=== PATIENT | female | born 1970 | race Caucasian/White ===

== ENCOUNTER 2021-06-06 09:42 | Emergency (ER) | payer BC, OTHER ==
[2021-06-06] MEDS ORDERED: solu-MEDROL 125 MG, Sterile H2O 10 ml 2 ML IV ONE ×2 (09:54)
[2021-06-06] MEDS ORDERED: HYDROCODONE-ACETAMIN 2.5-108/5 ML SOLUTION PO STA (09:56)
--- NOTE | 2021-06-06 10:02 | ERPHSYRPT ---
- History of Present Illness Time Seen by Provider: 06/06/21 09:50 Source: patient Exam Limitations: no limitations Physician History: This is a 50-year-old white female who has a history of asthma and continues to smoke daily and presents with cough and shortness of breath and "lungs hurting her". Her symptoms began 2 days ago. Symptoms have not improved. Patient has not received a COVID-19 vaccination. She has not been exposed to anyone with similar symptoms or with known viral illness. Patient states that she has been having fevers at home. Timing/Duration: day(s) (2) Severity of Dyspnea-Max: moderate Severity of Dyspnea-Current: moderate Possible Cause: occasional episodes Modifying Factors: Improves With: activity, coughing Associated Symptoms: cough, chest pain/discomfort, painful breathing Allergies/Adverse Reactions: Penicillins Allergy (Verified 04/14/12 20:53) Home Medications: Albuterol 2.5 mg/3 ml Neb [Proventil 2.5 mg/3 ml Neb] 2.5 ml NEB DAILY 06/06/21 [History] Albuterol Sulfate [Ventolin Hfa] 18 gm NEB DAILY 06/06/21 [History] Buspirone HCl [Buspar] 5 mg PO DAILY 06/06/21 [History] Hx Tetanus, Diphtheria Vaccination/Date Given: Yes Hx Influenza Vaccination/Date Given: No Hx Pneumococcal Vaccination/Date Given: No Travel Risk - International Travel Have you traveled outside of the country in past 3 weeks: No - Coronavirus Screening Are you exhibiting any of the following symptoms?: No Symptoms: Fever, Cough: New Onset, Shortness of Breath Close contact with a COVID-19 positive Pt in past 14-21 Days: No - Vaccine Status Have you recieved a Covid-19 vaccination: No - Review of Systems Constitutional: Fever Eyes: No Symptoms Ears, Nose, & Throat: No Symptoms Respiratory: Cough, Dyspnea Cardiac: No Symptoms Abdominal/Gastrointestinal: No Symptoms Genitourinary Symptoms: No Symptoms Musculoskeletal: No Symptoms Skin: No Symptoms Neurological: No Symptoms Psychological: Anxiety Endocrine: No Symptoms Hematologic/Lymphatic: No Symptoms Immunological/Allergic: No Symptoms All Other Systems: Reviewed and Negative - Past Medical History Pertinent Past Medical History: No Neurological History: No Pertinent History ENT History: No Pertinent History Cardiac History: No Pertinent History Respiratory History: Asthma Endocrine Medical History: No Pertinent History Musculoskeletal History: No Pertinent History GI Medical History: No Pertinent History History: No Pertinent History Psycho-Social History: No Pertinent History - Past Surgical History Past Surgical History: Yes Gastrointestinal: Appendectomy, Cholecystectomy Female Surgical History: Section Other Surgical History: EAR SURGERY - Social History Smoking Status: Current every day smoker How long have you smoked: 20 YEARS Exposure to second hand smoke: Yes Drug Use: none Patient Lives Alone: No Significant Family History: ASTHMA-DAD - Female History Hx Now: No - Nursing Vital Signs Nursing Vital Signs: Initial Vital Signs Temperature 97.9 F 06/06/21 09:45 Pulse Rate 75 06/06/21 09:45 Respiratory Rate 24 06/06/21 09:45 Blood Pressure 171/102 06/06/21 09:45 O2 Sat by Pulse Oximetry 100 06/06/21 09:45 Pain Scale Pain Intensity 6 - Physical Exam General Appearance: mild distress (Appears to be related more to anxiety.), alert, anxiety, other (Patient has the ability to speak multiple long sentences.) Eye Exam: PERRL/EOMI, eyes nml inspection Ears, Nose, Throat Exam: hearing grossly normal Neck Exam: normal inspection, non-tender, supple, full range of motion Respiratory Exam: normal breath sounds, lungs clear, airway intact, No chest tenderness, No respiratory distress, No rhonchi, No wheezing, No stridor Cardiovascular/Chest Exam: normal heart sounds, regular rate/rhythm Abdominal/Gastrointestinal Exam: soft, normal bowel sounds, No tenderness Rectal Exam: not done Extremity Exam: non-tender, normal range of motion, normal inspection, normal capillary refill, no calf tenderness, no pedal edema, pelvis stable, No calf tenderness Neurologic Exam: alert, oriented x 3, cooperative, 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 as tested, normal mood/affect, nml cerebellar function, nml station & gait, sensation nml Skin Exam: normal color, warm, dry Lymphatic Exam: No adenopathy SpO2 Interpretation: normal O2 Delivery: Room Air - Course Nursing assessment & vital signs reviewed: Yes EKG Interpreted by Me: RATE (54), Sinus Rhythm, NORMAL AXIS, NORMAL INTERVALS, NORMAL QRS, NORMAL ST-T, Other (No acute ischemic changes on today's EKG.) Ordered Tests: Active Orders 24 hr Category Date Time Status 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 Care 06/06/21 09:55 Active EKG-ER Only STAT Care 06/06/21 09:56 Active IV Insertion STAT Care 06/06/21 09:54 Active Pulse Oximetry (ED) STAT Care 06/06/21 09:54 Active CHEST 1 VIEW (PORTABLE) Stat Exams 06/06/21 09:54 Completed BLOOD CULTURE Stat Lab 06/06/21 10:20 Received CBC W DIFF Stat Lab 06/06/21 10:10 Completed CMP Stat Lab 06/06/21 10:10 Completed D-DIMER QUANTITATIVE Stat Lab 06/06/21 10:10 Completed Lactic Acid Stat Lab 06/06/21 09:54 Completed NT PRO BNP Stat Lab 06/06/21 10:10 Completed PROTIME WITH INR Stat Lab 06/06/21 10:10 Completed TROPONIN Q3H Lab 06/06/21 10:10 Completed TROPONIN Q3H Lab 06/06/21 13:00 Ordered TROPONIN Q3H Lab 06/06/21 16:00 Ordered TROPONIN Q3H Lab 06/06/21 19:00 Ordered TROPONIN Q3H Lab 06/06/21 22:00 Ordered Medication Summary Discontinued Medications Generic Name Dose Route Start Last Admin Trade Name Freq PRN Reason Stop Dose Admin Hydrocodone Bitart/Acetaminophen 10 ml 06/06/21 09:56 06/06/21 10:34 Hydrocodone-Acetamin 2.5-108/5 Ml Solution PO 06/06/21 09:57 10 ml STAT STA Administration Hydrocodone Bitart/Acetaminophen Confirm 06/06/21 10:33 Hydrocodone-Acetamin 2.5-108/5 Ml Solution Administered 06/06/21 10:34 Dose 10 ml .ROUTE .STK-MED ONE Methylprednisolone Sodium 0 mg 06/06/21 09:54 06/06/21 10:35 Succinate 125 mg/ Sterile IV 06/06/21 09:55 125 mg Water 2 ml STAT ONE Administration Methylprednisolone Sodium Succinate Confirm 06/06/21 10:34 Solu-Medrol Administered 06/06/21 10:35 Dose 125 mg .ROUTE .STK-MED ONE Sterile Water Confirm 06/06/21 10:34 Sterile H2o 10 Ml Administered 06/06/21 10:35 Dose 10 ml IJ .STK-MED ONE Lab/Rad Data: Laboratory Result Diagrams 06/06/21 10:10 06/06/21 10:10 Laboratory Results 06/06/21 06/06/21 06/06/21 Range/Units 10:10 10:10 10:10 WBC (4.0-10.5) K/mm3 RBC (4.1-5.4) M/mm3 Hgb (12.0-16.0) gm/dl Hct (35-47) % MCV (78-100) fl MCH (26-32) pg MCHC (32-36) g/dl RDW (11.5-14.0) % Plt Count (150-450) K/mm3 MPV (7.5-11.0) fl Gran % (36.0-66.0) % Eos # (Auto) (0-0.5) Absolute Lymphs (auto) (1.0-4.6) Absolute Monos (auto) (0.0-1.3) Lymphocytes % (24.0-44.0) % Monocytes % (0.0-12.0) % Eosinophils % (0.00-5.0) % Basophils % (0.0-0.4) % Absolute Granulocytes (1.4-6.9) Basophils # (0-0.4) PT 10.8 (9.4-12.5) SECONDS INR 0.92 (0.8-3.0) D-Dimer < 215 L (215-500) ng/mL Sodium 141 (137-145) mmol/L Potassium 3.9 (3.5-5.1) mmol/L Chloride 103 (98-107) mmol/L Carbon Dioxide 27 (22-30) mmol/L Anion Gap 15.5 H (5-15) MEQ/L BUN 5 L (7-17) mg/dL Creatinine 0.64 (0.52-1.04) mg/dL Estimated GFR > 60.0 ML/MIN Glucose 89 (74-106) mg/dL Lactic Acid (0.4-2.0) Calcium 9.6 (8.4-10.2) mg/dL Total Bilirubin < 0.10 L (0.2-1.3) mg/dL AST 21 (14-36) U/L ALT 13 (0-35) U/L Alkaline Phosphatase 78 (38-126) U/L Troponin I < 0.012 (0.000-0.034) ng/mL NT-Pro-B Natriuret Pep 235 (0-450) pg/mL Serum Total Protein 7.4 (6.3-8.2) g/dL Albumin 4.3 (3.5-5.0) g/dL 06/06/21 06/06/21 Range/Units 10:10 09:54 WBC 6.2 (4.0-10.5) K/mm3 RBC 4.06 L (4.1-5.4) M/mm3 Hgb 8.4 L (12.0-16.0) gm/dl Hct 29.3 L (35-47) % MCV 72.2 L (78-100) fl MCH 20.7 L (26-32) pg MCHC 28.7 L (32-36) g/dl RDW 23.4 H (11.5-14.0) % Plt Count 233 (150-450) K/mm3 MPV 11.0 (7.5-11.0) fl Gran % 54.2 (36.0-66.0) % Eos # (Auto) 0.24 (0-0.5) Absolute Lymphs (auto) 1.85 (1.0-4.6) Absolute Monos (auto) 0.74 (0.0-1.3) Lymphocytes % 29.6 (24.0-44.0) % Monocytes % 11.9 (0.0-12.0) % Eosinophils % 3.8 (0.00-5.0) % Basophils % 0.5 (0.0-0.4) % Absolute Granulocytes 3.38 (1.4-6.9) Basophils # 0.03 (0-0.4) PT (9.4-12.5) SECONDS INR (0.8-3.0) D-Dimer (215-500) ng/mL Sodium (137-145) mmol/L Potassium (3.5-5.1) mmol/L Chloride (98-107) mmol/L Carbon Dioxide (22-30) mmol/L Anion Gap (5-15) MEQ/L BUN (7-17) mg/dL Creatinine (0.52-1.04) mg/dL Estimated GFR ML/MIN Glucose (74-106) mg/dL Lactic Acid 1.4 (0.4-2.0) Calcium (8.4-10.2) mg/dL Total Bilirubin (0.2-1.3) mg/dL AST (14-36) U/L ALT (0-35) U/L Alkaline Phosphatase (38-126) U/L Troponin I (0.000-0.034) ng/mL NT-Pro-B Natriuret Pep (0-450) pg/mL Serum Total Protein (6.3-8.2) g/dL Albumin (3.5-5.0) g/dL - Progress Progress: improved, re-examined Air Movement: good Progress Note: 06/06/21 10:46 Chest x-ray reveals no acute cardiopulmonary process 06/06/21 11:26 Medical decision making: This patient's symptoms have improved. Patient was found to be anemic with a hemoglobin 8.4. Her vital signs are stable. There is no active, emergent bleeding at this time. Patient did state that she has been having intermittent vaginal bleeding for several months. She had put herself on an iron tablet. She has an appointment scheduled with her primary care physician, Dr. Randolph on 06/13/2021. I advised her of her hemoglobin level and the need to have the discussion regarding the vaginal bleeding and anemia evaluation and management by Dr. Randolph. Blood Culture(s) Obtained: No Antibiotics given: No - Departure Departure Disposition: Home Clinical Impression: Shortness of breath, Anemia Condition: Stable Critical Care Time: No Referrals: SALMA BRYANT [Primary Care Provider] - Additional Instructions: Eat green leafy vegetables, continue taking your iron as discussed. Follow-up with Dr. Randolph at your next appointment and discuss your intermittent vaginal bleeding and anemia issues.
--- NOTE | 2021-06-06 10:15 | XRAY ---
Indication: Short of breath and nonproductive cough. Comparison: June 23, 2012. Portable chest again demonstrates normal heart, lungs, and bony thorax.
[2021-06-06 10:32] LABS: Absolute Neutrophil Ct (ANC) 3.38 (1.4-6.9); BASOPHIL % 0.5 % (0.0-0.4); Basophil (Absolute #) 0.03 (0-0.4); Eosinophil % 3.8 % (0.00-5.0); Eosinophil (Absolute #) 0.24 (0-0.5); Hematocrit 29.3 % (35-47); Hemoglobin 8.4 gm/dl (12.0-16.0); Lymphocyte (Absolute #) 1.85 (1.0-4.6); Lymphocytes % 29.6 % (24.0-44.0); Mean Cell Volume 72.2 fl (78-100); Mean Corpuscular Hemoglobin 20.7 pg (26-32); Mean Corpuscular Hgb Concent. 28.7 g/dl (32-36); Monocyte (Absolute #) 0.74 (0.0-1.3); Monocytes % 11.9 % (0.0-12.0); Neutrophil % 54.2 % (36.0-66.0); Platelet Count 233 K/mm3 (150-450); Red Blood Count 4.06 M/mm3 (4.1-5.4); Red Cell Distribution Width 23.4 % (11.5-14.0); White Blood Count 6.2 K/mm3 (4.0-10.5)
[2021-06-06] MEDS ORDERED: HYDROCODONE-ACETAMIN 2.5-108/5 ML SOLUTION ONE (10:33)
[2021-06-06] MEDS ORDERED: Sterile H2O 10 ml IJ ONE (10:34)
[2021-06-06] MEDS ORDERED: solu-MEDROL ONE (10:34)
[2021-06-06 10:38] LABS: INR 0.92 (0.8-3.0); PROTIME 10.8 SECONDS (9.4-12.5)
[2021-06-06 10:42] LABS: D-DIMER QUANTITATIVE < 215 ng/mL (215-500)
[2021-06-06 10:53] LABS: ALBUMIN 4.3 g/dL (3.5-5.0); ALKALINE PHOSPHATASE 78 U/L (38-126); ANION GAP 15.5 MEQ/L (5-15); BILIRUBIN,TOTAL < 0.10 mg/dL (0.2-1.3); BLOOD UREA NITROGEN 5 mg/dL (7-17); CHLORIDE 103 mmol/L (98-107); Calcium 9.6 mg/dL (8.4-10.2); Carbon Dioxide 27 mmol/L (22-30); Creatinine 1 0.64 mg/dL (0.52-1.04); EST GLOMERULAR FILTRATION RATE > 60.0 ML/MIN; Glucose 89 mg/dL (74-106); NT PRO BNP 235 pg/mL (0-450); Potassium 3.9 mmol/L (3.5-5.1); SGOT/AST 21 U/L (14-36); SGPT/ALT 13 U/L (0-35); SODIUM 141 mmol/L (137-145); Total Protein 7.4 g/dL (6.3-8.2)
[2021-06-06 11:25] VITALS: BP 162/84; PULSE 64; O2SAT 100
[2021-06-06 14:12] LABS: Slide Review 1 YES
== END 2021-06-06 11:45 | disposition home or self-care (01) ==
LOC: ED 09:42
DX: R06.02 Shortness of breath (principal); D64.9 Anemia, unspecified
CPT/HCPCS: 36415; 71045; 80053; 83605; 83880; 84484; 85025; 85379; 85610; 86617; 86618; 87040; 93005; 93041; 94760; 96374; 99284; J2930; A9270-GY

== ENCOUNTER 2021-06-19 11:58 | Emergency (ER) | payer OTHER ==
[2021-06-19 13:03] LABS: Absolute Neutrophil Ct (ANC) 4.24 (1.4-6.9); BASOPHIL % 0.4 % (0.0-0.4); Basophil (Absolute #) 0.03 (0-0.4); Eosinophil % 1.9 % (0.00-5.0); Eosinophil (Absolute #) 0.13 (0-0.5); Hematocrit 35.9 % (35-47); Hemoglobin 10.5 gm/dl (12.0-16.0); Lymphocytes % 28.7 % (24.0-44.0); Mean Cell Volume 73.6 fl (78-100); Mean Corpuscular Hemoglobin 21.5 pg (26-32); Mean Corpuscular Hgb Concent. 29.2 g/dl (32-36); Mean Platelet Volume 10.9 fl (7.5-11.0); Monocyte (Absolute #) 0.57 (0.0-1.3); Monocytes % 8.2 % (0.0-12.0); Neutrophil % 60.8 % (36.0-66.0); Platelet Count 244 K/mm3 (150-450); Red Blood Count 4.88 M/mm3 (4.1-5.4)
[2021-06-19 13:07] LABS: ALBUMIN 4.6 g/dL (3.5-5.0); ALKALINE PHOSPHATASE 100 U/L (38-126); ANION GAP 14.8 MEQ/L (5-15); BILIRUBIN,TOTAL < 0.10 mg/dL (0.2-1.3); BLOOD UREA NITROGEN 10 mg/dL (7-17); CHLORIDE 102 mmol/L (98-107); Calcium 9.8 mg/dL (8.4-10.2); Carbon Dioxide 23 mmol/L (22-30); Creatinine 1 0.63 mg/dL (0.52-1.04); EST GLOMERULAR FILTRATION RATE > 60.0 ML/MIN; Glucose 99 mg/dL (74-106); Potassium 4.2 mmol/L (3.5-5.1); SGOT/AST 34 U/L (14-36); SGPT/ALT 20 U/L (0-35); SODIUM 136 mmol/L (137-145); Total Protein 7.9 g/dL (6.3-8.2)
[2021-06-19 13:39] VITALS: BP 129/75; PULSE 71
[2021-06-19] MEDS: Zofran 4 MG/2 ML VIAL IV ONE (13:39)
[2021-06-19] MEDS ORDERED: ZOFRAN ODT 4 MG ONE (13:39)
[2021-06-19 13:44] VITALS: O2SAT 97
--- NOTE | 2021-06-19 13:44 | ERPHSYRPT ---
- History of Present Illness Time Seen by Provider: 06/19/21 12:12 Source: patient Exam Limitations: no limitations Patient Subjective Stated Complaint: Pt states that she has "turkey ticks" all over her body and she has had them in her house for the past couple of months but over the past couple of weeks she has gotten really weak and nauseaous and believes that it is due to them Triage Nursing Assessment: Pt brought to the ER by her , hypertensive, rates overall pain as 7/10, no edema, decreased appetite, decreased sleep, scattered bites on body, skin n/w/d, doesn't appear to be in any distress Physician History: Patient is a 50-year-old female presents to our ED with complaints of pruritus. The pruritus has been ongoing for approximately 2 months. Patient has been evaluated and worked up by her family physician for the same. Patient is here because she feels her symptoms are worsening. Patient attributes her symptoms to turkey ticks. Patient states she has turkey ticks all over her body and her house. Patient lives with her however he is asymptomatic. Patient states she feels mildly nauseous. Patient denies pain. No vomiting. No diarrhea. NO CP or SOB. There are a few scant isolated lesions on her skin that she has been scratching. Patient believes these are a result of turkey ticks. Symptoms are mild to moderate in intensity. No specific worsening improving factors. Patient otherwise feels well. No hives. No difficulty breathing no shortness of breath. No abdominal pain or cramping. Patient's only allergies are morphine and penicillin which she has not been exposed to per patient. Timing/Duration: today Severity: moderate Modifying Factors: Improves With: nothing Associated Symptoms: denies symptoms Allergies/Adverse Reactions: morphine Allergy (Verified 06/19/21 12:22) Penicillins Allergy (Verified 06/19/21 12:21) Home Medications: Albuterol 2.5 mg/3 ml Neb [Proventil 2.5 mg/3 ml Neb] 2.5 ml NEB DAILY 06/06/21 [History] Albuterol Sulfate [Ventolin Hfa] 18 gm NEB DAILY 06/06/21 [History] Buspirone HCl [Buspar] 10 mg PO DAILY 06/06/21 [History] Cyclobenzaprine HCl 10 mg [Cyclobenzaprine 10 MG] 10 mg PO TID 06/19/21 [History] Ferrous Sulfate 325 mg [Feosol 325 mg] 325 mg PO DAILY 06/19/21 [History] Hydroxyzine HCl 25 mg [Atarax 25 mg] 25 mg PO TID 06/19/21 [History] Hx Tetanus, Diphtheria Vaccination/Date Given: Yes Hx Influenza Vaccination/Date Given: No Hx Pneumococcal Vaccination/Date Given: No Travel Risk - International Travel Have you traveled outside of the country in past 3 weeks: No - Coronavirus Screening Are you exhibiting any of the following symptoms?: No Close contact with a COVID-19 positive Pt in past 14-21 Days: No - Vaccine Status Have you recieved a Covid-19 vaccination: No - Review of Systems Constitutional: No Symptoms, No Fever, No Chills Eyes: No Symptoms Ears, Nose, & Throat: No Symptoms Respiratory: No Symptoms, No Cough, No Dyspnea Cardiac: No Symptoms, No Chest Pain, No Edema, No Syncope Abdominal/Gastrointestinal: No Symptoms, No Abdominal Pain, No Nausea, No Vomiting, No Diarrhea Genitourinary Symptoms: No Symptoms, No Dysuria Musculoskeletal: No Symptoms, No Back Pain, No Neck Pain Skin: No Symptoms, No Rash Neurological: No Symptoms, No Dizziness, No Focal Weakness, No Sensory Changes Psychological: No Symptoms Endocrine: No Symptoms Hematologic/Lymphatic: No Symptoms Immunological/Allergic: No Symptoms All Other Systems: Reviewed and Negative - Past Medical History Pertinent Past Medical History: Yes Neurological History: No Pertinent History ENT History: No Pertinent History Cardiac History: No Pertinent History Respiratory History: Asthma Endocrine Medical History: No Pertinent History Musculoskeletal History: No Pertinent History, Rheumatoid Arthritis GI Medical History: No Pertinent History History: No Pertinent History Psycho-Social History: Anxiety, Depression, Panic Disorder - Past Surgical History Past Surgical History: Yes Gastrointestinal: Appendectomy, Cholecystectomy Female Surgical History: Section Other Surgical History: EAR SURGERY - Social History Smoking Status: Current every day smoker How long have you smoked: 20 YEARS Exposure to second hand smoke: Yes Drug Use: marijuana Patient Lives Alone: No Significant Family History: ASTHMA-DAD - Female History Hx Now: No - Nursing Vital Signs Nursing Vital Signs: Initial Vital Signs Temperature 97.3 F 06/19/21 12:12 Pulse Rate 76 06/19/21 12:12 Blood Pressure 143/73 06/19/21 12:12 O2 Sat by Pulse Oximetry 97 06/19/21 12:12 Pain Scale Pain Intensity 7 - Physical Exam General Appearance: no apparent distress, alert Eye Exam: PERRL/EOMI, eyes nml inspection Ears, Nose, Throat Exam: normal ENT inspection, TMs normal, pharynx normal, moist mucous membranes Neck Exam: normal inspection, non-tender, supple, full range of motion Respiratory Exam: normal breath sounds, lungs clear, No respiratory distress Cardiovascular Exam: regular rate/rhythm, normal heart sounds, normal peripheral pulses Gastrointestinal/Abdomen Exam: soft, normal bowel sounds, No tenderness, No mass Back Exam: normal inspection, normal range of motion, No CVA tenderness, No vertebral tenderness Extremity Exam: normal inspection, normal range of motion, pelvis stable Neurologic Exam: alert, oriented x 3, cooperative, normal mood/affect, sensation nml, No motor deficits Skin Exam: normal color, warm, dry, other (Patient has a few scattered sparse lesions on her skin which itch. No superimposed cellulitis. Overlying soft tissue otherwise intact. No open or draining lesions. No lymphangitis.), No rash Lymphatic Exam: No adenopathy SpO2 Interpretation: normal SpO2: 97 O2 Delivery: Room Air - Course Nursing assessment & vital signs reviewed: Yes Ordered Tests: Active Orders 24 hr Category Date Time Status CBC W DIFF Stat Lab 06/19/21 12:30 Completed CMP Stat Lab 06/19/21 12:30 Completed Medication Summary Discontinued Medications Generic Name Dose Route Start Last Admin Trade Name Christopherq PRN Reason Stop Dose Admin Ondansetron HCl 4 mg 06/19/21 13:38 06/19/21 13:39 Zofran 4 Mg/2 Ml Vial IV 06/19/21 13:39 4 mg STAT ONE Administration Ondansetron HCl Confirm 06/19/21 13:39 Zofran Odt 4 Mg Administered 06/19/21 13:40 Dose 4 mg .ROUTE .[facility] ONE Lab/Rad Data: Laboratory Result Diagrams 06/19/21 12:30 06/19/21 12:30 Laboratory Results 06/19/21 06/19/21 Range/Units 12:30 12:30 WBC 7.0 (4.0-10.5) K/mm3 RBC 4.88 (4.1-5.4) M/mm3 Hgb 10.5 L (12.0-16.0) gm/dl Hct 35.9 (35-47) % MCV 73.6 L (78-100) fl MCH 21.5 L (26-32) pg MCHC 29.2 L (32-36) g/dl RDW 26.0 H (11.5-14.0) % Plt Count 244 (150-450) K/mm3 MPV 10.9 (7.5-11.0) fl Gran % 60.8 (36.0-66.0) % Eos # (Auto) 0.13 (0-0.5) Absolute Lymphs (auto) 2.00 (1.0-4.6) Absolute Monos (auto) 0.57 (0.0-1.3) Lymphocytes % 28.7 (24.0-44.0) % Monocytes % 8.2 (0.0-12.0) % Eosinophils % 1.9 (0.00-5.0) % Basophils % 0.4 (0.0-0.4) % Absolute Granulocytes 4.24 (1.4-6.9) Basophils # 0.03 (0-0.4) Sodium 136 L (137-145) mmol/L Potassium 4.2 (3.5-5.1) mmol/L Chloride 102 (98-107) mmol/L Carbon Dioxide 23 (22-30) mmol/L Anion Gap 14.8 (5-15) MEQ/L BUN 10 (7-17) mg/dL Creatinine 0.63 (0.52-1.04) mg/dL Estimated GFR > 60.0 ML/MIN Glucose 99 (74-106) mg/dL Calcium 9.8 (8.4-10.2) mg/dL Total Bilirubin < 0.10 L (0.2-1.3) mg/dL AST 34 (14-36) U/L ALT 20 (0-35) U/L Alkaline Phosphatase 100 (38-126) U/L Serum Total Protein 7.9 (6.3-8.2) g/dL Albumin 4.6 (3.5-5.0) g/dL - Progress Progress: improved Progress Note: Patient given Zofran for nausea. Patient reassessed. Nausea improved. Patient states that she is very frustrated because her symptoms have been ongoing for approximately 2 months. Patient states that her doctor has not been able to figure out the problem. I spoke to Dr. Briscoe covering Dr. Rouse. Dr. Briscoe advised considering follow-up with Dr. Rouse. I discussed work up results with patient. Patient became frustrated that no one knows what is wrong with her. She stated "everyone thinks I am making this up". I reassured patient that I believe her however we are just not able to find the exact problem at this point. Patient left the ER. Patient's was in the room during this time. Patient's states that patient had a traumatic brain injury approximately 1 year ago and that she tends to "get excited about things". apologized for hroades behavior. I advised to talk with and have her return to our ED. Patient absconded the ED prior to closure of this encounter. We did not discuss treatment or further recommendations for work-up. I advised that patient should follow-up with Dr. Rouse either or Saturday when he returns to his office for further recommendations and possible referral 06/19/21 14:11 06/19/21 14:30 Discussed with .: Danielle Will see patient in: office Counseled pt/family regarding: lab results, diagnosis, need for follow-up - Departure Departure Disposition: AMA Clinical Impression: pruritis Condition: Stable Critical Care Time: No Referrals: RIVAS ROUSE [Primary Care Provider] -
[2021-06-19 15:02] LABS: Slide Review 1 YES
== END 2021-06-19 14:10 | disposition left against medical advice (07) ==
LOC: ED 11:58
DX: L29.9 Pruritus, unspecified (principal); R11.0 Nausea; Z79.899 Other long term (current) drug therapy
CPT/HCPCS: 36415; 80053; 85025; 96374; 99283; J2405; Q0162

== ENCOUNTER 2022-05-31 10:50 | Emergency (ER) | payer OTHER ==
[2022-05-31] MEDS ORDERED: Sodium Chloride 0.9% 1000 ML 1,000 ML IV STA (11:24)
[2022-05-31] MEDS ORDERED: TORAdol 30 mg Injection IV ONE (11:24)
[2022-05-31] MEDS ORDERED: Zofran 4 MG/2 ML VIAL IV ONE (11:24)
[2022-05-31] MEDS ORDERED: TORAdol 30 mg Injection ONE (11:27)
[2022-05-31] MEDS ORDERED: Zofran 4 MG/2 ML VIAL ONE (11:27)
[2022-05-31] MEDS ORDERED: Sodium Chloride 0.9% 1000 ML 1,000 ML ONE (11:27)
--- NOTE | 2022-05-31 11:40 | ERPHSYRPT ---
- History of Present Illness Time Seen by Provider: 05/31/22 11:13 Source: patient Exam Limitations: no limitations Patient Subjective Stated Complaint: Pt states "I hurt all over, I have been coughing and I have been running a temp." Triage Nursing Assessment: Pt presented alert and oriented X 3, skin pwd. pt ambulates with an upright steady gait, able to speak in clear full sentences pt able to move while grunting. Physician History: 51 years old female presented to the ER with chief complaint of generalized body aches, fatigue tiredness, lack of energy since yesterday with associated fever and chills with a T-max of 101.5 yesterday. Also reports associated nausea and vomited once with occasional abdominal cramping. She also has nonproductive cough and because of repeated coughing having chest soreness. Unvaccinated for COVID-19 but denies any sick contact. Timing/Duration: yesterday, constant, gradual onset, worse Severity: moderate Modifying Factors: Worsens With: movement Associated Symptoms: nausea, vomiting, cough, chills, fever, headaches, loss of appetite, malaise, weakness, No abdominal pain, No shortness of breath Allergies/Adverse Reactions: bee venom protein (honey bee) Allergy (Severe, Verified 05/31/22 10:56) Swelling morphine Allergy (Verified 06/19/21 12:22) Penicillins Allergy (Verified 06/19/21 12:21) Home Medications: Albuterol 2.5 mg/3 ml Neb [Proventil 2.5 mg/3 ml Neb] 2.5 ml NEB DAILY 06/06/21 [History] Albuterol Sulfate [Ventolin Hfa] 18 gm NEB DAILY 06/06/21 [History] Buspirone HCl [Buspar] 10 mg PO DAILY 06/06/21 [History] Cyclobenzaprine HCl 10 mg [Cyclobenzaprine 10 MG] 10 mg PO TID 06/19/21 [History] Ferrous Sulfate 325 mg [Feosol 325 mg] 325 mg PO DAILY 06/19/21 [History] Hydroxyzine HCl 25 mg [Atarax 25 mg] 25 mg PO TID 06/19/21 [History] Dextroamphetamine/Amphetamine [Adderall 10 mg Tablet] 10 mg PO DAILY PRN 05/31/22 [History] Semaglutide [Ozempic] 0.25 mg IM WEEKLY 05/31/22 [History] Sertraline HCl [Zoloft] 100 mg PO DAILY 05/31/22 [History] Hx Tetanus, Diphtheria Vaccination/Date Given: Yes Hx Influenza Vaccination/Date Given: No Hx Pneumococcal Vaccination/Date Given: No Immunizations Up to Date: Yes Travel Risk - International Travel Have you traveled outside of the country in past 3 weeks: No - Coronavirus Screening Are you exhibiting any of the following symptoms?: Yes Symptoms: Fever, Cough: New Onset, Headaches/Body Aches/Fatigue - Vaccine Status Have you recieved a Covid-19 vaccination: No - Review of Systems Constitutional: Fever, Chills, Fatigue, Weakness Eyes: No Symptoms Ears, Nose, & Throat: No Symptoms Respiratory: Cough Cardiac: No Symptoms Abdominal/Gastrointestinal: Nausea, Vomiting Genitourinary Symptoms: No Symptoms Musculoskeletal: Myalgias Skin: No Symptoms Neurological: No Symptoms Psychological: No Symptoms Endocrine: No Symptoms Hematologic/Lymphatic: No Symptoms Immunological/Allergic: No Symptoms - Past Medical History Pertinent Past Medical History: Yes Neurological History: No Pertinent History ENT History: No Pertinent History Cardiac History: No Pertinent History Respiratory History: Asthma Endocrine Medical History: No Pertinent History Musculoskeletal History: No Pertinent History, Rheumatoid Arthritis GI Medical History: No Pertinent History History: No Pertinent History Psycho-Social History: Anxiety, Depression, Panic Disorder Other Medical History: graves - Past Surgical History Past Surgical History: Yes Gastrointestinal: Appendectomy, Cholecystectomy Female Surgical History: Section Other Surgical History: EAR SURGERY - Social History Smoking Status: Current every day smoker How long have you smoked: 20 YEARS Exposure to second hand smoke: Yes Drug Use: marijuana Patient Lives Alone: No Significant Family History: ASTHMA-DAD - Nursing Vital Signs Nursing Vital Signs: Initial Vital Signs Temperature 99.9 F 05/31/22 10:51 Pulse Rate 92 H 05/31/22 10:51 Respiratory Rate 24 05/31/22 10:51 Blood Pressure 123/85 05/31/22 10:51 O2 Sat by Pulse Oximetry 100 05/31/22 10:51 Pain Scale Pain Intensity 2 - Physical Exam General Appearance: no apparent distress, alert Eye Exam: PERRL/EOMI, eyes nml inspection Ears, Nose, Throat Exam: normal ENT inspection, TMs normal, pharynx normal, moist mucous membranes Neck Exam: normal inspection, non-tender, supple, full range of motion Respiratory Exam: normal breath sounds, lungs clear Cardiovascular Exam: regular rate/rhythm, normal heart sounds Gastrointestinal/Abdomen Exam: soft, normal bowel sounds, No tenderness Back Exam: normal inspection, normal range of motion Extremity Exam: normal inspection, normal range of motion Neurologic Exam: alert, oriented x 3, cooperative Skin Exam: normal color SpO2 Interpretation: normal SpO2: 99 O2 Delivery: Room Air Ordered Tests: Active Orders 24 hr Category Date Time Status IV Insertion STAT Care 05/31/22 11:24 Completed CHEST 1 VIEW (PORTABLE) Stat Exams 05/31/22 11:25 Completed BLOOD CULTURE Stat Lab 05/31/22 11:42 Received CBC W DIFF Stat Lab 05/31/22 12:00 Completed CMP Stat Lab 05/31/22 11:42 Completed LIPASE Stat Lab 05/31/22 11:42 Completed Lactic Acid Stat Lab 05/31/22 11:24 Completed MAG [MAGNESIUM] Stat Lab 05/31/22 11:42 Completed UA W/RFX CULTURE Stat Lab 05/31/22 11:31 Completed Medication Summary Discontinued Medications Generic Name Dose Route Start Last Admin Trade Name Freq PRN Reason Stop Dose Admin Sodium Chloride 1,000 mls @ 999 mls/hr 05/31/22 11:24 05/31/22 12:25 Sodium Chloride 0.9% 1000 Ml IV 05/31/22 12:24 Infused .Q1H1M STA Infusion Sodium Chloride Confirm 05/31/22 11:27 Sodium Chloride 0.9% 1000 Ml Administered 05/31/22 11:28 Dose 1,000 mls @ ud .ROUTE .STK-MED ONE Ketorolac Tromethamine 30 mg 05/31/22 11:24 05/31/22 11:28 Ketorolac Tromethamine 30 Mg/Ml Inj IV 05/31/22 11:25 30 mg STAT ONE Administration Ketorolac Tromethamine Confirm 05/31/22 11:27 Ketorolac Tromethamine 30 Mg/Ml Inj Administered 05/31/22 11:28 Dose 30 mg .ROUTE .STK-MED ONE Ondansetron HCl 4 mg 05/31/22 11:24 05/31/22 11:29 Ondansetron Hcl 4 Mg/2 Ml Vial IV 05/31/22 11:25 4 mg STAT ONE Administration Ondansetron HCl Confirm 05/31/22 11:27 Ondansetron Hcl 4 Mg/2 Ml Vial Administered 05/31/22 11:28 Dose 4 mg .ROUTE .STK-MED ONE Lab/Rad Data: Laboratory Result Diagrams 05/31/22 12:00 05/31/22 11:42 Laboratory Results 05/31/22 05/31/22 05/31/22 Range/Units 12:00 11:42 11:42 WBC 7.6 (4.0-10.5) x10^3/uL RBC 4.34 (4.1-5.4) x10^6/uL Hgb 13.4 (12.0-16.0) g/dL Hct 39.1 (35-47) % MCV 90.1 (78-100) fL MCH 30.9 (26-32) pg MCHC 34.3 (32-36) g/dL RDW 13.2 (11.5-14.0) % Plt Count 158 (150-450) x10^3/uL MPV 11.9 H (7.5-11.0) fL Gran % 88.3 H (36.0-66.0) % Immature Gran % (Auto) 0.3 (0.00-0.4) % Nucleat RBC Rel Count 0.0 (0.00-0.1) % Eos # (Auto) 0.04 (0-0.5) x10^3/uL Immature Gran # (Auto) 0.02 (0.00-0.03) x10^3u/L Absolute Lymphs (auto) 0.33 L (1.0-4.6) x10^3/uL Absolute Monos (auto) 0.46 (0.0-1.3) x10^3/uL Absolute Nucleated RBC 0.00 (0.00-0.01) x10^3u/L Lymphocytes % 4.4 L (24.0-44.0) % Monocytes % 6.1 (0.0-12.0) % Eosinophils % 0.5 (0.00-5.0) % Basophils % 0.4 (0.0-0.4) % Absolute Granulocytes 6.68 (1.4-6.9) x10^3/uL Basophils # 0.03 (0-0.4) x10^3/uL Sodium (137-145) mmol/L Potassium (3.5-5.1) mmol/L Chloride (98-107) mmol/L Carbon Dioxide (22-30) mmol/L Anion Gap (5-15) MEQ/L BUN (7-17) mg/dL Creatinine (0.52-1.04) mg/dL Estimated GFR ML/MIN Glucose (74-106) mg/dL Lactic Acid (0.4-2.0) Calcium (8.4-10.2) mg/dL Magnesium 1.5 L (1.6-2.3) mg/dL Total Bilirubin (0.2-1.3) mg/dL AST (14-36) U/L ALT (0-35) U/L Alkaline Phosphatase (38-126) U/L Serum Total Protein (6.3-8.2) g/dL Albumin (3.5-5.0) g/dL Lipase 63 (23-300) U/L Urinalys Dipstick Clnc Urine Color (YELLOW) Urine Appearance (CLEAR) Urine pH (5-6) Ur Specific [place] (1.005-1.025) POC Urine Protein Conf (Negative) Urine Ketones (NEGATIVE) Urine Nitrite (NEGATIVE) Urine Bilirubin (NEGATIVE) Urine Urobilinogen (0-1) mg/dL Urine Leukocytes (NEGATIVE) Urine WBC (Auto) (0-5) /HPF Urine RBC (Auto) (0-2) /HPF U Hyaline Cast (Auto) (0-2) /LPF U Epithel Cells (Auto) (FEW) /HPF Urine RBC (0-5) Rafi/ul Urine Mucus (Auto) (NEGATIVE) /HPF Ur Culture Indicated? Urine Glucose (NEGATIVE) mg/dL Influenza Type A Ag NEGATIVE (NEGATIVE) Influenza Type B Ag NEGATIVE (NEGATIVE) RSV (PCR) NEGATIVE (Negative) SARS-CoV-2 (PCR) POSITIVE A (NEGATIVE) 05/31/22 05/31/22 05/31/22 Range/Units 11:42 11:31 11:24 WBC (4.0-10.5) x10^3/uL RBC (4.1-5.4) x10^6/uL Hgb (12.0-16.0) g/dL Hct (35-47) % MCV (78-100) fL MCH (26-32) pg MCHC (32-36) g/dL RDW (11.5-14.0) % Plt Count (150-450) x10^3/uL MPV (7.5-11.0) fL Gran % (36.0-66.0) % Immature Gran % (Auto) (0.00-0.4) % Nucleat RBC Rel Count (0.00-0.1) % Eos # (Auto) (0-0.5) x10^3/uL Immature Gran # (Auto) (0.00-0.03) x10^3u/L Absolute Lymphs (auto) (1.0-4.6) x10^3/uL Absolute Monos (auto) (0.0-1.3) x10^3/uL Absolute Nucleated RBC (0.00-0.01) x10^3u/L Lymphocytes % (24.0-44.0) % Monocytes % (0.0-12.0) % Eosinophils % (0.00-5.0) % Basophils % (0.0-0.4) % Absolute Granulocytes (1.4-6.9) x10^3/uL Basophils # (0-0.4) x10^3/uL Sodium 137 (137-145) mmol/L Potassium 3.6 (3.5-5.1) mmol/L Chloride 105 (98-107) mmol/L Carbon Dioxide 24 (22-30) mmol/L Anion Gap 11.5 (5-15) MEQ/L BUN 12 (7-17) mg/dL Creatinine 0.60 (0.52-1.04) mg/dL Estimated GFR > 60.0 ML/MIN Glucose 89 (74-106) mg/dL Lactic Acid 1.1 (0.4-2.0) Calcium 9.7 (8.4-10.2) mg/dL Magnesium (1.6-2.3) mg/dL Total Bilirubin 0.50 (0.2-1.3) mg/dL AST 29 (14-36) U/L ALT 17 (0-35) U/L Alkaline Phosphatase 82 (38-126) U/L Serum Total Protein 7.4 (6.3-8.2) g/dL Albumin 4.4 (3.5-5.0) g/dL Lipase (23-300) U/L Urinalys Dipstick Clnc MAIN LAB Urine Color YELLOW (YELLOW) Urine Appearance CLEAR (CLEAR) Urine pH 5.0 (5-6) Ur Specific [place] >=1.030 (1.005-1.025) POC Urine Protein Conf NEGATIVE (Negative) Urine Ketones SMALL-15 (NEGATIVE) Urine Nitrite NEGATIVE (NEGATIVE) Urine Bilirubin NEGATIVE (NEGATIVE) Urine Urobilinogen 0.2 (0-1) mg/dL Urine Leukocytes NEGATIVE (NEGATIVE) Urine WBC (Auto) 0-2 (0-5) /HPF Urine RBC (Auto) 0-2 (0-2) /HPF U Hyaline Cast (Auto) 0-2 (0-2) /LPF U Epithel Cells (Auto) MODERATE (FEW) /HPF Urine RBC NEGATIVE (0-5) Rafi/ul Urine Mucus (Auto) SLIGHT (NEGATIVE) /HPF Ur Culture Indicated? NO Urine Glucose NEGATIVE (NEGATIVE) mg/dL Influenza Type A Ag (NEGATIVE) Influenza Type B Ag (NEGATIVE) RSV (PCR) (Negative) SARS-CoV-2 (PCR) (NEGATIVE) - Progress Progress: improved Progress Note: 05/31/22 13:03 51 years old is evaluated for flulike symptoms. She is given fluids and symptomatic treatment for body aches. On reevaluation feeling better. Work-up grossly unremarkable. Feeling better on reevaluation. X-rays negative as well. Discussed with patient about Paxilovid and she wants it. Discussed the [facility] FDA authorization, risks/benefits/interactions with other medications and she wants to go ahead with it. Prescription is sent. Outpatient follow-up recommended. Counseled pt/family regarding: lab results, diagnosis, need for follow-up, rad results, smoking cessation - Departure Departure Disposition: Home Clinical Impression: Viral syndrome, COVID-19 virus detected Condition: Stable Critical Care Time: No Referrals: RIVAS ROUSE MD [Primary Care Provider] - Follow up/PCP as directed (1-2 days for reevaluation) Instructions: Viral Syndrome (DC), COVID-19 (DC) Additional Instructions: Drink plenty of fluids. Take Tylenol/ibuprofen as needed. Follow-up with p [facility] for reevaluation. Return to ER for worsening of symptoms like intractable nausea vomiting/persistent high-grade fever, difficulty breathing etc. Prescriptions: Nirmatrelvir/Ritonavir [Paxlovid 2X150 mg-100 mg (Eua)] 1 each PO BID 5 Days #30 tablet
--- NOTE | 2022-05-31 11:44 | XRAY ---
Indication: Short of breath, fever, headache, and bodyache. Comparison: June 06, 2021. Portable chest again demonstrates normal heart, lungs, and bony thorax with incidental tiny right base calcified granuloma.
[2022-05-31 12:10] LABS: Absolute Neutrophil Ct (ANC) 6.68 x10^3/uL (1.4-6.9); Basophil (Absolute #) 0.03 x10^3/uL (0-0.4); Eosinophil % 0.5 % (0.00-5.0); Eosinophil (Absolute #) 0.04 x10^3/uL (0-0.5); Hematocrit 39.1 % (35-47); Hemoglobin 13.4 g/dL (12.0-16.0); Lymphocyte (Absolute #) 0.33 x10^3/uL (1.0-4.6); Lymphocytes % 4.4 % (24.0-44.0); Mean Cell Volume 90.1 fL (78-100); Mean Corpuscular Hemoglobin 30.9 pg (26-32); Mean Corpuscular Hgb Concent. 34.3 g/dL (32-36); Mean Platelet Volume 11.9 fL (7.5-11.0); Monocyte (Absolute #) 0.46 x10^3/uL (0.0-1.3); Monocytes % 6.1 % (0.0-12.0); Neutrophil % 88.3 % (36.0-66.0); Platelet Count 158 x10^3/uL (150-450); Red Blood Count 4.34 x10^6/uL (4.1-5.4); Red Cell Distribution Width 13.2 % (11.5-14.0); White Blood Count 7.6 x10^3/uL (4.0-10.5)
[2022-05-31 12:23] LABS: MAGNESIUM 1.5 mg/dL (1.6-2.3)
[2022-05-31 12:25] LABS: ALBUMIN 4.4 g/dL (3.5-5.0); ALKALINE PHOSPHATASE 82 U/L (38-126); ANION GAP 11.5 MEQ/L (5-15); BLOOD UREA NITROGEN 12 mg/dL (7-17); CHLORIDE 105 mmol/L (98-107); Calcium 9.7 mg/dL (8.4-10.2); Carbon Dioxide 24 mmol/L (22-30); EST GLOMERULAR FILTRATION RATE > 60.0 ML/MIN; Glucose 89 mg/dL (74-106); Potassium 3.6 mmol/L (3.5-5.1); SGOT/AST 29 U/L (14-36); SGPT/ALT 17 U/L (0-35); SODIUM 137 mmol/L (137-145); Total Protein 7.4 g/dL (6.3-8.2)
[2022-05-31 12:43] LABS: Epithelial Cells MODERATE /HPF (FEW); Hyaline Casts 0-2 /LPF (0-2); Mucus SLIGHT /HPF (NEGATIVE); RBC 0-2 /HPF (0-2); WBC 0-2 /HPF (0-5)
[2022-05-31 12:47] LABS: Appearance CLEAR (CLEAR); Bilirubin NEGATIVE (NEGATIVE); Glucose NEGATIVE (NEGATIVE); Ketones SMALL-15 (NEGATIVE); Nitrite NEGATIVE (NEGATIVE); Protein,Urine Dip NEGATIVE (Negative); RBC NEGATIVE Ery/ul (0-5); Specific Gravity >=1.030 (1.005-1.025); Urine Cultured Indicated? NO; Urobilinogen 0.2 mg/dL (0-1)
[2022-05-31 12:48] LABS: Dipstick done @ ? MAIN LAB
[2022-05-31 12:54] LABS: INFLUENZA A NEGATIVE (NEGATIVE); INFLUENZA B NEGATIVE (NEGATIVE); RESPIRATORY SYNCTIAL VIRUS NEGATIVE (Negative)
[2022-05-31 12:56] LABS: SARS-CoV-2 Xpert Express POSITIVE (NEGATIVE)
[2022-05-31 13:06] VITALS: O2SAT 99
[2022-05-31 13:07] VITALS: BP 108/63; PULSE 97
[2022-05-31 14:43] LABS: Slide Review 1 YES
== END 2022-05-31 13:20 | disposition home or self-care (01) ==
LOC: ED 10:50
DX: U07.1 COVID-19 (principal); R50.9 Fever, unspecified; M79.10 Myalgia, unspecified site; R53.83 Other fatigue; R11.2 Nausea with vomiting, unspecified; R10.84 Generalized abdominal pain; R05.9 Cough, unspecified; Z72.0 Tobacco use; Z79.899 Other long term (current) drug therapy; Z28.310 Unvaccinated for COVID-19
CPT/HCPCS: 0241U; 36000; 36415; 71045; 80053; 81015; 83605; 83690; 83735; 85025; 87040; 96360; 96374; 96375; 99284; J1885; J2405

== ENCOUNTER 2022-07-18 10:47 | Day surgery (SDC) | payer OTHER ==
[2022-07-18] MEDS ORDERED: Sodium Chloride 0.9(Preservative Free) 10 ML IJ ONE (10:48)
[2022-07-18] MEDS ORDERED: Depo-Medrol 40 MG/ML IM ONE (10:48)
[2022-07-18] MEDS ORDERED: DIPRIVAN 200 MG/20 ML IV ONE ×2 (12:02→12:14)
[2022-07-18] MEDS ORDERED: Lactated Ringers 1,000 ML IV ONE (12:46)
--- NOTE | 2022-07-18 13:14 | XRAY ---
Indication: Right L4-S1 transforaminal SALLY. Intraoperative fluoroscopy provided for 51 seconds. 3 digital spot image submitted for interpretation demonstrate posterior needle tips projecting over the expected right L4 and L5 nerve roots. Small amount of contrast injected for needle tip placement. Correlate with intraoperative findings/report.
--- NOTE | 2022-07-18 13:35 | XRAY ---
51 seconds fluoroscopy time in surgery for right L4-S1 transforaminal SALLY.
== END 2022-07-18 12:33 | disposition home or self-care (01) ==
LOC: SDC-PAIN 10:47
PROVIDERS: ATTEND Psychiatry & Neurology Pain Medicine
DX: M54.16 Radiculopathy, lumbar region (principal); E11.9 Type 2 diabetes mellitus without complications; Z79.899 Other long term (current) drug therapy
CPT/HCPCS: 64483; 64484; 72100; 77003; 81025; 82947; J1030; J2704; Q9966

== ENCOUNTER 2022-08-16 07:30 | Day surgery (SDC) | payer OTHER ==
--- NOTE | 2022-08-15 10:59 | HP ---
DATE OF SURGERY: 08/16/2022 HISTORY OF PRESENT ILLNESS: The patient is a 51-year-old female who presented initially with complaints of a Bartholin cyst. She has had multiple infections on the right side that marsupialized in the past. Incidentally, the patient looks like she has got some infected drainage from umbilicus. She had some kind of pathology here recently with some epidermoid cysts from a surgery site. It looks like she has had a tubal ligation and a section in the past. PAST MEDICAL HISTORY: Hypertension, asthma, diabetes, hypothyroid, chronic obstructive pulmonary disease. PAST SURGICAL HISTORY: Tubal ligation, section, Bartholin cyst marsupialization multiple times. ALLERGIES: PENICILLIN. MORPHINE. ADHESIVE TAPE. LATEX. MEDICATIONS: Multivitamin, Albuterol, naproxen, cyclobenzaprine, Prempro, Adderall, Ozempic. FAMILY HISTORY: None reported. SOCIAL HISTORY: Every day smoker. Denies alcohol. REVIEW OF SYSTEMS: CONSTITUTIONAL: Denies fever or chills. CHEST: Denies shortness of breath. CVS: Denies chest pain. ABDOMEN: Denies abdominal pain. PHYSICAL EXAMINATION: GENERAL: No acute distress. CHEST: Nonlabored. No shortness of breath. CVS: Regular rate and rhythm. ABDOMEN: Soft. IMPRESSION: Infected umbilical area. PLAN: Umbilical exploration with Dr. Tahir Smith. As dictated by Viktoria Ritter NP.
[~2022-08-16 07:30] MED LIST: Lactated Ringers 1,000 ML IV ONE; Sensorcaine 0.25% 10 ML ONE
[2022-08-16] MEDS ORDERED: Lactated Ringers 1,000 ML IV SCH (08:00)
[2022-08-16] MEDS ORDERED: Versed 2 MG/2 ML Injection IV ONE (08:15)
[2022-08-16] MEDS ORDERED: Versed 2 MG/2 ML Injection ONE (08:17)
[2022-08-16] MEDS ORDERED: TORAdol 30 mg Injection ONE (09:09)
[2022-08-16] MEDS ORDERED: Zofran 4 MG/2 ML VIAL ONE ×2 (09:09→10:48)
[2022-08-16] MEDS ORDERED: Decadron 4 MG INJ ONE ×2 (09:09→10:04)
[2022-08-16] MEDS ORDERED: DIPRIVAN 200 MG/20 ML IV ONE (09:09)
[2022-08-16] MEDS ORDERED: SUBLIMAZE 100 MCG/2 ML ONE ×2 (09:09→09:57)
[2022-08-16] MEDS ORDERED: BRIDION 200MG/2ML IV ONE (09:09)
[2022-08-16] MEDS ORDERED: Zemuron 100 MG/10 ML ONE (09:09)
[2022-08-16] MEDS ORDERED: Xylocaine-Mpf 2% 5 Ml Vial ONE ×2 (09:09→10:04)
[2022-08-16] MEDS ORDERED: Levofloxacin 500MG/100ML D5W 500 MG/100 ML BAG IV SCH (09:15)
[2022-08-16] MEDS ORDERED: Marcaine 0.5%/Epinephrine 10 ML ONE ×2 (10:04→10:07)
--- NOTE | 2022-08-16 10:52 | OP ---
SURGERY DATE/TIME: 08/16/2022 0915 PREOPERATIVE DIAGNOSIS: Painful umbilicus. POSTOPERATIVE DIAGNOSIS: Umbilical hernia. PROCEDURE: Primary umbilical hernia repair with no mesh. SURGEON: Tahir Smith M.D. ANESTHESIA: General. COMPLICATIONS: None. CONDITION: Stable. INDICATION: The patient has a very painful umbilicus. DESCRIPTION OF PROCEDURE: She is taken to surgery. General anesthetic. Routine prep and drape. Infraumbilical incision. There were pieces of omentum coming through, a slightly cheesy defect under the umbilicus this was all opened up and imbricated into one defect. It was 1.4 cm long and about 8 mm wide almost slit-like. Everything was reduced. The umbilical skin had been stuck basically almost in the defect. It was repaired with 4-0 Vicryl. The fascia approximated with four inverting 0 Prolene. Satisfactory repair was present. The skin was then closed with 4-0 Vicryl. Compressive umbilical dressing. The patient tolerated the procedure satisfactorily.
[2022-08-16 11:32] VITALS: O2SAT 97
[2022-08-16 11:45] VITALS: BP 143/89; PULSE 72
== END 2022-08-16 12:00 ==
LOC: SDC 07:30
PROVIDERS: ATTEND Surgery
DX: K42.9 Umbilical hernia without obstruction or gangrene (principal); R10.33 Periumbilical pain; E11.9 Type 2 diabetes mellitus without complications
CPT/HCPCS: 64488; 76937; 76942; 81025; 82947; J1100; J1885; J1956; J2250; J2405; J2704; J3010

== ENCOUNTER 2022-10-04 10:45 | Emergency (ER) | payer OTHER ==
[2022-10-04] MEDS ORDERED: DUONEB 0.5-3 MG/3 ml Neb IH ONE ×2 (11:05→11:11)
[2022-10-04] MEDS ORDERED: solu-MEDROL 125 MG, Sterile H2O 10 ml 2 ML IV ONE ×2 (11:05)
--- NOTE | 2022-10-04 11:11 | ERPHSYRPT ---
- History of Present Illness Time Seen by Provider: 10/04/22 11:04 Source: patient, family Exam Limitations: no limitations Patient Subjective Stated Complaint: pt states "I have trouble catching my breath. I have been sick for a couple weeks and it just keeps getting worse." Triage Nursing Assessment: pt ambulated into the er; pt is axo x4; c/o SOB; pt states 6/10 pain to chest when deep breathing; wheezing/ coarse lung sounds in all lobes; wet hacking cough present; afebrile; tachycardic; hypertensive; skin PDW Physician History: 51 years old female with history of tobacco abuse, diabetes mellitus presented to the ER with 2 weeks history of progressively increasing wet to dry cough with shortness of breath. Patient reports shortness of breath with exertion and better with resting and neb treatments. Because of repeated coughing has generalized chest soreness and hurts to take a deep breath. No fever or chills but has generalized weakness fatigue and tiredness. Timing/Duration: week(s) (2), gradual onset, worse Activities at Onset: activity Severity of Dyspnea-Max: moderate Severity of Dyspnea-Current: moderate Possible Cause: unknown cause Modifying Factors: Improves With: rest. Worsens With: coughing, exertion Associated Symptoms: intermittent, cough, chest pain/discomfort, weakness, tightness Allergies/Adverse Reactions: bee venom protein (honey bee) Allergy (Severe, Verified 10/04/22 10:47) Swelling Penicillins Allergy (Verified 10/04/22 10:47) adhesive tape Adverse Reaction (Intermediate, Verified 10/04/22 10:47) Skin Irritation latex Adverse Reaction (Intermediate, Verified 10/04/22 10:47) Skin Irritation morphine Adverse Reaction (Verified 10/04/22 10:47) pt becomes agitated when on this a prolonged period of time Home Medications: Albuterol 2.5 mg/3 ml Neb [Proventil 2.5 mg/3 ml Neb] 2.5 ml NEB DAILY 06/06/21 [History] Albuterol Sulfate [Ventolin Hfa] 18 gm NEB DAILY 06/06/21 [History] Cyclobenzaprine HCl 10 mg [Cyclobenzaprine 10 MG] 10 mg PO TID 06/19/21 [History] Dextroamphetamine/Amphetamine [Adderall 10 mg Tablet] 10 mg PO DAILY PRN 05/31/22 [History] Semaglutide [Ozempic] 1 mg IM WEEKLY 05/31/22 [History] Estrogen,Con/M-Progest Acet [Prempro 0.45-1.5 mg Tablet] 1 tablet PO DAILY 08/14/22 [History] Multivitamin 1 each PO DAILY 08/14/22 [History] Non-Formulary Drug [Non-Formulary Item] 5 mg PO DAILY 08/14/22 [History] Hx Tetanus, Diphtheria Vaccination/Date Given: Yes Hx Influenza Vaccination/Date Given: No Hx Pneumococcal Vaccination/Date Given: No Travel Risk - International Travel Have you traveled outside of the country in past 3 weeks: No - Coronavirus Screening Are you exhibiting any of the following symptoms?: Yes Symptoms: Cough: New Onset, Shortness of Breath Close contact with a COVID-19 positive Pt in past 14-21 Days: Yes - Vaccine Status Have you recieved a Covid-19 vaccination: No - Review of Systems Constitutional: Fatigue, Weakness Ears, Nose, & Throat: No Symptoms Respiratory: Cough, Dyspnea, Wheezing Cardiac: Chest Pain, No Edema Abdominal/Gastrointestinal: No Symptoms Genitourinary Symptoms: No Symptoms Musculoskeletal: No Symptoms Skin: No Symptoms Neurological: No Symptoms Psychological: No Symptoms Endocrine: No Symptoms Hematologic/Lymphatic: No Symptoms Immunological/Allergic: No Symptoms - Past Medical History Pertinent Past Medical History: Yes Neurological History: No Pertinent History ENT History: No Pertinent History Cardiac History: No Pertinent History Respiratory History: Asthma Endocrine Medical History: Hypothyroidism Musculoskeletal History: No Pertinent History, Rheumatoid Arthritis GI Medical History: No Pertinent History History: No Pertinent History Psycho-Social History: Anxiety, Depression, Panic Disorder Other Medical History: graves - Past Surgical History Past Surgical History: Yes Gastrointestinal: Appendectomy, Cholecystectomy Female Surgical History: Section Other Surgical History: EAR SURGERY - Social History Smoking Status: Current every day smoker How long have you smoked: 30 years Exposure to second hand smoke: No Drug Use: marijuana Patient Lives Alone: No Significant Family History: ASTHMA-DAD - Nursing Vital Signs Nursing Vital Signs: Initial Vital Signs Temperature 97.4 F 10/04/22 10:48 Pulse Rate 120 H 10/04/22 10:48 Respiratory Rate 28 H 10/04/22 10:48 Blood Pressure 158/127 10/04/22 10:48 O2 Sat by Pulse Oximetry 97 10/04/22 10:48 Pain Scale Pain Intensity 2 - Physical Exam General Appearance: no apparent distress, alert Eye Exam: PERRL/EOMI Ears, Nose, Throat Exam: hearing grossly normal, normal pharynx Neck Exam: normal inspection, non-tender, supple, full range of motion Respiratory Exam: normal breath sounds, lungs clear Cardiovascular/Chest Exam: normal heart sounds, tachycardia Abdominal/Gastrointestinal Exam: soft, normal bowel sounds, No tenderness Extremity Exam: non-tender, normal range of motion Neurologic Exam: alert, oriented x 3, cooperative, sensation nml, No motor deficits Skin Exam: normal color SpO2 Interpretation: normal SpO2: 97 O2 Delivery: Room Air - Course EKG Interpreted by Me: RATE (105), Sinus Tach, NORMAL AXIS, NORMAL INTERVALS, Q- wave, Non-specific ST Changes Ordered Tests: Active Orders 24 hr Category Date Time Status Green Jobs Trainer STAT Care 10/04/22 11:06 Active EKG-ER Only STAT Care 10/04/22 11:05 Active IV Insertion STAT Care 10/04/22 11:05 Active CHEST 1 VIEW (PORTABLE) Stat Exams 10/04/22 11:06 Completed BLOOD CULTURE Stat Lab 10/04/22 11:27 Received CBC W DIFF Stat Lab 10/04/22 11:20 Completed CMP Stat Lab 10/04/22 11:20 Completed D-DIMER QUANTITATIVE Stat Lab 10/04/22 12:49 Completed Lactic Acid Stat Lab 10/04/22 11:22 Completed MAGNESIUM Stat Lab 10/04/22 11:20 Completed NT PRO BNP Stat Lab 10/04/22 11:20 Completed TROPONIN Q4H Lab 10/04/22 11:20 Completed TROPONIN Q4H Lab 10/04/22 15:15 Ordered TROPONIN Q4H Lab 10/04/22 19:15 Ordered UA W/RFX CULTURE Stat Lab 10/04/22 11:51 Completed Respiratory Therapy Assessment DAILY RT 10/04/22 11:28 Active Medication Summary Discontinued Medications Generic Name Dose Route Start Last Admin Trade Name Freq PRN Reason Stop Dose Admin Albuterol/Ipratropium 3 ml 10/04/22 11:05 10/04/22 11:15 Ipratropium/Albuterol Sulfate 3 Ml Ampul.Neb IH 10/04/22 11:06 3 ml STAT ONE Administration Albuterol/Ipratropium Confirm 10/04/22 11:11 Ipratropium/Albuterol Sulfate 3 Ml Ampul.Neb Administered 10/04/22 11:12 Dose 3 ml IH .STK-MED ONE Methylprednisolone Sodium 0 mg 10/04/22 11:05 10/04/22 11:39 Succinate 125 mg/ Sterile IV 10/04/22 11:06 125 mg Water 2 ml STAT ONE Administration Methylprednisolone Sodium Succinate Confirm 10/04/22 11:37 Methylprednis Sod Succ 125 Mg/2 Ml Vial Administered 10/04/22 11:38 Dose 125 mg .ROUTE .STK-MED ONE Sterile Water Confirm 10/04/22 11:37 Water For Injection,Sterile 10 Ml Vial Administered 10/04/22 11:38 Dose 10 ml IJ .STK-MED ONE Lab/Rad Data: Laboratory Result Diagrams 10/04/22 11:20 10/04/22 11:20 Laboratory Results 10/04/22 10/04/22 10/04/22 Range/Units 12:49 12:00 11:51 WBC (4.0-10.5) x10^3/uL RBC (4.1-5.4) x10^6/uL Hgb (12.0-16.0) g/dL Hct (35-47) % MCV (78-100) fL MCH (26-32) pg MCHC (32-36) g/dL RDW (11.5-14.0) % Plt Count (150-450) x10^3/uL MPV (7.5-11.0) fL Gran % (36.0-66.0) % Immature Gran % (Auto) (0.00-0.4) % Nucleat RBC Rel Count (0.00-0.1) % Eos # (Auto) (0-0.5) x10^3/uL Immature Gran # (Auto) (0.00-0.03) x10^3u/L Absolute Lymphs (auto) (1.0-4.6) x10^3/uL Absolute Monos (auto) (0.0-1.3) x10^3/uL Absolute Nucleated RBC (0.00-0.01) x10^3u/L Lymphocytes % (24.0-44.0) % Monocytes % (0.0-12.0) % Eosinophils % (0.00-5.0) % Basophils % (0.0-0.4) % Absolute Granulocytes (1.4-6.9) x10^3/uL Basophils # (0-0.4) x10^3/uL D-Dimer 0.27 (0.0-0.50) mg/L Sodium (137-145) mmol/L Potassium (3.5-5.1) mmol/L Chloride (98-107) mmol/L Carbon Dioxide (22-30) mmol/L Anion Gap (5-15) MEQ/L BUN (7-17) mg/dL Creatinine (0.52-1.04) mg/dL Estimated GFR ML/MIN Glucose (74-106) mg/dL Lactic Acid (0.4-2.0) Calcium (8.4-10.2) mg/dL Magnesium (1.6-2.3) mg/dL Total Bilirubin (0.2-1.3) mg/dL AST (14-36) U/L ALT (0-35) U/L Alkaline Phosphatase (38-126) U/L Troponin I (0.000-0.034) ng/mL NT-Pro-B Natriuret Pep (0-900) pg/mL Serum Total Protein (6.3-8.2) g/dL Albumin (3.5-5.0) g/dL Urinalys Dipstick Clnc MAIN LAB Urine Color KANDICE (YELLOW) Urine Appearance SLIGHTLY (CLEAR) Urine pH 5.5 (5-6) Ur Specific [place] >=1.030 A (1.005-1.025) POC Urine Protein Conf 30 A (Negative) Urine Ketones NEGATIVE (NEGATIVE) Urine Nitrite NEGATIVE (NEGATIVE) Urine Bilirubin SMALL A (NEGATIVE) Urine Urobilinogen 0.2 (0-1) mg/dL Urine Leukocytes NEGATIVE (NEGATIVE) Urine WBC (Auto) 3-5 A (0-5) /HPF Urine RBC (Auto) 3-5 A (0-2) /HPF U Hyaline Cast (Auto) 0-2 (0-2) /LPF U Epithel Cells (Auto) FEW (FEW) /HPF Urine Bacteria (Auto) NONE (NEGATIVE) /HPF Urine RBC TRACE-INTACT A (0-5) Rafi/ul Urine Mucus (Auto) SLIGHT A (NEGATIVE) /HPF Ur Culture Indicated? NO Urine Glucose NEGATIVE (NEGATIVE) mg/dL Influenza Type A Ag NEGATIVE (NEGATIVE) Influenza Type B Ag NEGATIVE (NEGATIVE) RSV (PCR) NEGATIVE (Negative) SARS-CoV-2 (PCR) POSITIVE A (NEGATIVE) 10/04/22 10/04/22 10/04/22 Range/Units 11:22 11:20 11:20 WBC (4.0-10.5) x10^3/uL RBC (4.1-5.4) x10^6/uL Hgb (12.0-16.0) g/dL Hct (35-47) % MCV (78-100) fL MCH (26-32) pg MCHC (32-36) g/dL RDW (11.5-14.0) % Plt Count (150-450) x10^3/uL MPV (7.5-11.0) fL Gran % (36.0-66.0) % Immature Gran % (Auto) (0.00-0.4) % Nucleat RBC Rel Count (0.00-0.1) % Eos # (Auto) (0-0.5) x10^3/uL Immature Gran # (Auto) (0.00-0.03) x10^3u/L Absolute Lymphs (auto) (1.0-4.6) x10^3/uL Absolute Monos (auto) (0.0-1.3) x10^3/uL Absolute Nucleated RBC (0.00-0.01) x10^3u/L Lymphocytes % (24.0-44.0) % Monocytes % (0.0-12.0) % Eosinophils % (0.00-5.0) % Basophils % (0.0-0.4) % Absolute Granulocytes (1.4-6.9) x10^3/uL Basophils # (0-0.4) x10^3/uL D-Dimer (0.0-0.50) mg/L Sodium 138 (137-145) mmol/L Potassium 4.4 (3.5-5.1) mmol/L Chloride 105 (98-107) mmol/L Carbon Dioxide 23 (22-30) mmol/L Anion Gap 14.2 (5-15) MEQ/L BUN 15 (7-17) mg/dL Creatinine 0.54 (0.52-1.04) mg/dL Estimated GFR > 60.0 ML/MIN Glucose 123 H (74-106) mg/dL Lactic Acid 1.7 (0.4-2.0) Calcium 10.0 (8.4-10.2) mg/dL Magnesium 1.8 (1.6-2.3) mg/dL Total Bilirubin 1.00 (0.2-1.3) mg/dL AST 82 H (14-36) U/L ALT 87 H (0-35) U/L Alkaline Phosphatase 273 H (38-126) U/L Troponin I < 0.012 (0.000-0.034) ng/mL NT-Pro-B Natriuret Pep 41.1 (0-900) pg/mL Serum Total Protein 8.7 H (6.3-8.2) g/dL Albumin 4.8 (3.5-5.0) g/dL Urinalys Dipstick Clnc Urine Color (YELLOW) Urine Appearance (CLEAR) Urine pH (5-6) Ur Specific [place] (1.005-1.025) POC Urine Protein Conf (Negative) Urine Ketones (NEGATIVE) Urine Nitrite (NEGATIVE) Urine Bilirubin (NEGATIVE) Urine Urobilinogen (0-1) mg/dL Urine Leukocytes (NEGATIVE) Urine WBC (Auto) (0-5) /HPF Urine RBC (Auto) (0-2) /HPF U Hyaline Cast (Auto) (0-2) /LPF U Epithel Cells (Auto) (FEW) /HPF Urine Bacteria (Auto) (NEGATIVE) /HPF Urine RBC (0-5) Rafi/ul Urine Mucus (Auto) (NEGATIVE) /HPF Ur Culture Indicated? Urine Glucose (NEGATIVE) mg/dL Influenza Type A Ag (NEGATIVE) Influenza Type B Ag (NEGATIVE) RSV (PCR) (Negative) SARS-CoV-2 (PCR) (NEGATIVE) 10/04/22 Range/Units 11:20 WBC 7.6 (4.0-10.5) x10^3/uL RBC 5.67 H (4.1-5.4) x10^6/uL Hgb 17.3 H (12.0-16.0) g/dL Hct 50.3 H (35-47) % MCV 88.7 (78-100) fL MCH 30.5 (26-32) pg MCHC 34.4 (32-36) g/dL RDW 13.1 (11.5-14.0) % Plt Count 222 (150-450) x10^3/uL MPV 11.9 H (7.5-11.0) fL Gran % 49.4 (36.0-66.0) % Immature Gran % (Auto) 0.4 (0.00-0.4) % Nucleat RBC Rel Count 0.0 (0.00-0.1) % Eos # (Auto) 0.24 (0-0.5) x10^3/uL Immature Gran # (Auto) 0.03 (0.00-0.03) x10^3u/L Absolute Lymphs (auto) 2.85 (1.0-4.6) x10^3/uL Absolute Monos (auto) 0.67 (0.0-1.3) x10^3/uL Absolute Nucleated RBC 0.00 (0.00-0.01) x10^3u/L Lymphocytes % 37.4 (24.0-44.0) % Monocytes % 8.8 (0.0-12.0) % Eosinophils % 3.1 (0.00-5.0) % Basophils % 0.9 (0.0-0.4) % Absolute Granulocytes 3.77 (1.4-6.9) x10^3/uL Basophils # 0.07 (0-0.4) x10^3/uL D-Dimer (0.0-0.50) mg/L Sodium (137-145) mmol/L Potassium (3.5-5.1) mmol/L Chloride (98-107) mmol/L Carbon Dioxide (22-30) mmol/L Anion Gap (5-15) MEQ/L BUN (7-17) mg/dL Creatinine (0.52-1.04) mg/dL Estimated GFR ML/MIN Glucose (74-106) mg/dL Lactic Acid (0.4-2.0) Calcium (8.4-10.2) mg/dL Magnesium (1.6-2.3) mg/dL Total Bilirubin (0.2-1.3) mg/dL AST (14-36) U/L ALT (0-35) U/L Alkaline Phosphatase (38-126) U/L Troponin I (0.000-0.034) ng/mL NT-Pro-B Natriuret Pep (0-900) pg/mL Serum Total Protein (6.3-8.2) g/dL Albumin (3.5-5.0) g/dL Urinalys Dipstick Clnc Urine Color (YELLOW) Urine Appearance (CLEAR) Urine pH (5-6) Ur Specific [place] (1.005-1.025) POC Urine Protein Conf (Negative) Urine Ketones (NEGATIVE) Urine Nitrite (NEGATIVE) Urine Bilirubin (NEGATIVE) Urine Urobilinogen (0-1) mg/dL Urine Leukocytes (NEGATIVE) Urine WBC (Auto) (0-5) /HPF Urine RBC (Auto) (0-2) /HPF U Hyaline Cast (Auto) (0-2) /LPF U Epithel Cells (Auto) (FEW) /HPF Urine Bacteria (Auto) (NEGATIVE) /HPF Urine RBC (0-5) Rafi/ul Urine Mucus (Auto) (NEGATIVE) /HPF Ur Culture Indicated? Urine Glucose (NEGATIVE) mg/dL Influenza Type A Ag (NEGATIVE) Influenza Type B Ag (NEGATIVE) RSV (PCR) (Negative) SARS-CoV-2 (PCR) (NEGATIVE) - Progress Progress: improved Air Movement: good Progress Note: 10/04/22 14:15 51 years old is evaluated for worsening cough and shortness of breath for almost 2 weeks. Patient oxygen saturation was in mid 90s, given DuoNeb and Solu- Medrol, on reevaluation feeling much better. Patient was very anxious and mildly tachycardic initially with EKG did not show any acute ST elevation and has negative troponins. Chest x-ray negative for any acute cardiopulmonary fin dings. Chemistry grossly unremarkable except for elevated liver enzymes. She has positive COVID-19. Obtain D-dimer which are negative as well. Since patient symptoms been going on for more than 1 week, not a candidate for oral antiviral for COVID-19. She does have inhaler at home, I will give her short course of dexamethasone to go home as patient is a smoker and has some element of COPD exacerbation as well. Patient oxygen saturation on reevaluation is around 98%, not tachypneic or tachycardic and discussed in detail about signs symptoms of worsening needing return to ER which she seems understanding. Stable for discharge. Blood Culture(s) Obtained: Yes Antibiotics given: No Counseled pt/family regarding: lab results, diagnosis, need for follow-up, rad results, smoking cessation - Departure Departure Disposition: Home Clinical Impression: COVID-19 virus detected, Viral syndrome Condition: Stable Critical Care Time: No Referrals: RIVAS ROUSE MD [Primary Care Provider] - Follow Up with PCP/3 days Instructions: COVID-19 (DC) Additional Instructions: Continue with your inhaler/nebulizer. Do not smoke. Follow-up with primary care for reevaluation. Return to ER for difficulty breathing, worsening cough or if having chest pain etc. Prescriptions: Dexamethasone 4 mg [Decadron 4 MG] 6 mg PO DAILY 5 Days #8 tablet
[2022-10-04 11:34] LABS: Absolute Neutrophil Ct (ANC) 3.77 x10^3/uL (1.4-6.9); Basophil (Absolute #) 0.07 x10^3/uL (0-0.4); Eosinophil % 3.1 % (0.00-5.0); Eosinophil (Absolute #) 0.24 x10^3/uL (0-0.5); Hematocrit 50.3 % (35-47); Hemoglobin 17.3 g/dL (12.0-16.0); Lymphocyte (Absolute #) 2.85 x10^3/uL (1.0-4.6); Lymphocytes % 37.4 % (24.0-44.0); Mean Cell Volume 88.7 fL (78-100); Mean Corpuscular Hemoglobin 30.5 pg (26-32); Mean Corpuscular Hgb Concent. 34.4 g/dL (32-36); Mean Platelet Volume 11.9 fL (7.5-11.0); Monocyte (Absolute #) 0.67 x10^3/uL (0.0-1.3); Monocytes % 8.8 % (0.0-12.0); Neutrophil % 49.4 % (36.0-66.0); Platelet Count 222 x10^3/uL (150-450); Red Blood Count 5.67 x10^6/uL (4.1-5.4); Red Cell Distribution Width 13.1 % (11.5-14.0); White Blood Count 7.6 x10^3/uL (4.0-10.5)
[2022-10-04] MEDS ORDERED: Sterile H2O 10 ml IJ ONE (11:37)
[2022-10-04] MEDS ORDERED: solu-MEDROL ONE (11:37)
--- NOTE | 2022-10-04 12:09 | XRAY ---
Indication: Short of breath. Comparison: May 31, 2022. Portable chest again demonstrates normal heart, lungs, and bony thorax with incidental tiny right base calcified granuloma.
[2022-10-04 12:27] LABS: Appearance SLIGHTLY (CLEAR); Bilirubin SMALL (NEGATIVE); Glucose NEGATIVE (NEGATIVE); Ketones NEGATIVE (NEGATIVE); Specific Gravity >=1.030 (1.005-1.025)
[2022-10-04 12:29] LABS: Dipstick done @ ? MAIN LAB; Nitrite NEGATIVE (NEGATIVE); Ph 5.5 (5-6); Protein,Urine Dip 30 (Negative); RBC TRACE-INTACT Ery/ul (0-5); Urobilinogen 0.2 mg/dL (0-1)
[2022-10-04 12:30] LABS: Epithelial Cells FEW /HPF (FEW); Hyaline Casts 0-2 /LPF (0-2); Mucus SLIGHT /HPF (NEGATIVE)
[2022-10-04 12:37] LABS: ALBUMIN 4.8 g/dL (3.5-5.0); ALKALINE PHOSPHATASE 273 U/L (38-126); ANION GAP 14.2 MEQ/L (5-15); BLOOD UREA NITROGEN 15 mg/dL (7-17); CHLORIDE 105 mmol/L (98-107); Carbon Dioxide 23 mmol/L (22-30); Creatinine 1 0.54 mg/dL (0.52-1.04); EST GLOMERULAR FILTRATION RATE > 60.0 ML/MIN; Glucose 123 mg/dL (74-106); MAGNESIUM 1.8 mg/dL (1.6-2.3); NT PRO BNP 41.1 pg/mL (0-900); Potassium 4.4 mmol/L (3.5-5.1); SGOT/AST 82 U/L (14-36); SGPT/ALT 87 U/L (0-35); SODIUM 138 mmol/L (137-145); Total Protein 8.7 g/dL (6.3-8.2)
[2022-10-04 12:38] LABS: Urine Cultured Indicated? NO
[2022-10-04 12:48] LABS: INFLUENZA A NEGATIVE (NEGATIVE); INFLUENZA B NEGATIVE (NEGATIVE); RESPIRATORY SYNCTIAL VIRUS NEGATIVE (Negative)
[2022-10-04 13:03] LABS: SARS-CoV-2 Xpert Express POSITIVE (NEGATIVE)
[2022-10-04 14:09] VITALS: BP 125/80; PULSE 83
[2022-10-04 14:21] VITALS: O2SAT 97
== END 2022-10-04 14:33 | disposition home or self-care (01) ==
LOC: ED 10:45
DX: U07.1 COVID-19 (principal); R06.02 Shortness of breath; R05.2 Subacute cough; R53.1 Weakness; Z72.0 Tobacco use; Z79.899 Other long term (current) drug therapy; Z79.52 Long term (current) use of systemic steroids
CPT/HCPCS: 0241U; 36415; 71045; 80053; 81015; 83605; 83735; 83880; 84484; 85025; 85379; 87040; 93005; 93041; 94640; 96374; 99284; J2930; A9270-GY

== ENCOUNTER 2022-10-10 00:31 | Emergency (ER) | payer OTHER ==
--- NOTE | 2022-10-10 00:34 | ERPHSYRPT ---
- History of Present Illness Time Seen by Provider: 10/10/22 00:33 Source: patient, family Exam Limitations: no limitations Physician History: This a 51-year-old white female patient who was recently diagnosed with COVID-19 infection and has been coughing frequently each day and night. She is having pain in her back and abdomen and pelvis. In fact she states she aches all over still. She also has a headache from coughing. She also notices a burning pain in her genitourinary area. Timing/Duration: day(s) (5) Activites at Onset: none Quality: aching, burning Onset Location: vulvar pain, other (Perineal) Pain Radiation: none Severity of Pain-Max: moderate Sexual intercourse history: non-contributory Modifying Factors: Improves With: nothing Allergies/Adverse Reactions: bee venom protein (honey bee) Allergy (Severe, Verified 10/10/22 00:43) Swelling Penicillins Allergy (Verified 10/10/22 00:43) adhesive tape Adverse Reaction (Intermediate, Verified 10/10/22 00:43) Skin Irritation latex Adverse Reaction (Intermediate, Verified 10/10/22 00:43) Skin Irritation morphine Adverse Reaction (Verified 10/10/22 00:43) pt becomes agitated when on this a prolonged period of time Home Medications: Albuterol 2.5 mg/3 ml Neb [Proventil 2.5 mg/3 ml Neb] 2.5 ml NEB DAILY 06/06/21 [History] Albuterol Sulfate [Ventolin Hfa] 18 gm NEB DAILY 06/06/21 [History] Cyclobenzaprine HCl 10 mg [Cyclobenzaprine 10 MG] 10 mg PO TID 06/19/21 [History] Dextroamphetamine/Amphetamine [Adderall 10 mg Tablet] 10 mg PO DAILY PRN 05/31/22 [History] Semaglutide [Ozempic] 1 mg IM WEEKLY 05/31/22 [History] Estrogen,Con/M-Progest Acet [Prempro 0.45-1.5 mg Tablet] 1 tablet PO DAILY 08/14/22 [History] Multivitamin 1 each PO DAILY 08/14/22 [History] Non-Formulary Drug [Non-Formulary Item] 5 mg PO DAILY 08/14/22 [History] Hx Tetanus, Diphtheria Vaccination/Date Given: Yes Hx Influenza Vaccination/Date Given: No Hx Pneumococcal Vaccination/Date Given: No Travel Risk - International Travel Have you traveled outside of the country in past 3 weeks: No - Coronavirus Screening Are you exhibiting any of the following symptoms?: No Close contact with a COVID-19 positive Pt in past 14-21 Days: No - Vaccine Status Have you recieved a Covid-19 vaccination: No - Review of Systems Constitutional: No Symptoms Eyes: No Symptoms Ears, Nose, & Throat: No Symptoms Respiratory: Cough Cardiac: No Symptoms Abdominal/Gastrointestinal: No Symptoms Genitourinary Symptoms: Other (Perineal burning and tenderness) Musculoskeletal: No Symptoms Skin: Other (Dermatitis of the vulvar and perineal region) Psychological: No Symptoms Endocrine: No Symptoms Hematologic/Lymphatic: No Symptoms Immunological/Allergic: No Symptoms All Other Systems: Reviewed and Negative - Past Medical History Pertinent Past Medical History: Yes Neurological History: No Pertinent History ENT History: No Pertinent History Cardiac History: No Pertinent History Respiratory History: Asthma Endocrine Medical History: Hypothyroidism Musculoskeletal History: No Pertinent History, Rheumatoid Arthritis GI Medical History: No Pertinent History History: No Pertinent History Psycho-Social History: Anxiety, Depression, Panic Disorder Other Medical History: graves - Past Surgical History Past Surgical History: Yes Gastrointestinal: Appendectomy, Cholecystectomy Female Surgical History: Section Other Surgical History: EAR SURGERY - Social History Smoking Status: Current every day smoker How long have you smoked: 30 years Exposure to second hand smoke: No Drug Use: marijuana Patient Lives Alone: No Significant Family History: ASTHMA-DAD - Nursing Vital Signs Nursing Vital Signs: Initial Vital Signs Temperature 97 F 10/10/22 00:44 Pulse Rate 111 H 10/10/22 00:44 Respiratory Rate 24 10/10/22 00:44 Blood Pressure 150/98 10/10/22 00:44 O2 Sat by Pulse Oximetry 96 10/10/22 00:44 Pain Scale Pain Intensity [Generalized] 8 Pain Intensity 8 - Physical Exam General Appearance: no apparent distress, alert, anxiety Eye Exam: PERRL/EOMI, eyes nml inspection Ears, Nose, Throat Exam: normal ENT inspection, moist mucous membranes Neck Exam: normal inspection, non-tender, supple, full range of motion Respiratory Exam: normal breath sounds, lungs clear, airway intact, No chest tenderness, No respiratory distress Cardiovascular Exam: tachycardia Gastrointestinal/Abdomen Exam: soft, normal bowel sounds, other (No recurrent hernia. Well-healed surgical scar in the periumbilical region), No tenderness Pelvic Exam: other (Peroneal and inguinal dermatitis. No abscess. No bleeding. No odor), No vaginal bleeding Back Exam: normal inspection, normal range of motion, No CVA tenderness, No vertebral tenderness Extremity Exam: normal inspection, normal range of motion, pelvis stable Neurologic Exam: alert, oriented x 3, cooperative, interdisciplinary professor II-XII nml as tested, normal mood/affect, nml cerebellar function, nml station & gait, sensation nml Skin Exam: normal color, warm, dry, other (See above) Lymphatic Exam: No adenopathy SpO2 Interpretation: normal O2 Delivery: Room Air Ordered Tests: Active Orders 24 hr Category Date Time Status CULTURE,URINE Stat Lab 10/10/22 00:31 Received UA W/RFX CULTURE Stat Lab 10/10/22 00:31 Completed Lab/Rad Data: Laboratory Results 10/10/22 Range/Units 00:31 Urinalys Dipstick Clnc MAIN LAB Urine Color YELLOW (YELLOW) Urine Appearance SLIGHTLY CLOUDY A (CLEAR) Urine pH 5.5 (5-6) Ur Specific [place] 1.025 (1.005-1.025) POC Urine Protein Conf TRACE A (Negative) Urine Ketones SMALL-15 A (NEGATIVE) Urine Nitrite NEGATIVE (NEGATIVE) Urine Bilirubin SMALL A (NEGATIVE) Urine Urobilinogen 0.2 (0-1) mg/dL Urine Leukocytes SMALL A (NEGATIVE) Urine WBC (Auto) 26-50 A (0-5) /HPF Urine RBC (Auto) 16-25 A (0-2) /HPF U Epithel Cells (Auto) FEW (FEW) /HPF Urine Bacteria (Auto) MODERATE A (NEGATIVE) /HPF Urine RBC SMALL A (0-5) Rafi/ul Calcium Oxalate Crystal 26-50 A (NEGATIVE) /HPF Urine Mucus (Auto) SLIGHT A (NEGATIVE) /HPF Ur Culture Indicated? YES Urine Glucose NEGATIVE (NEGATIVE) mg/dL - Progress Progress: improved Air Movement: good Counseled pt/family regarding: diagnosis, need for follow-up - Departure Departure Disposition: Home Clinical Impression: COVID-19 virus infection, Viral bronchitis, Candidal dermatitis Condition: Stable Critical Care Time: No Referrals: RIVAS ROUSE MD [Primary Care Provider] - Follow up/PCP as directed Additional Instructions: Alternate nystatin powder and zinc oxide ointment to the skin of the genital and groin areas every 6 hours while awake. After each application make sure you clean and dry the site well prior to placement of the next topical medication. Purchase the zinc oxide ointment [id number] at the pharmacy Prescriptions: Hydrocodone/Acetaminophen [Hydrocodone-Acetamn 7.5-325/15] 10 ml PO Q8H PRN PRN #120 ml MDD 30 ml PRN Reason: Cough Nystatin Powder 15 gm [Nystop Powder 15 gm] 30 gm TP Q6H #1 unit
[2022-10-10 01:11] LABS: Bacteria MODERATE /HPF (NEGATIVE); Calcium Oxalate Crystals 26-50 /HPF (NEGATIVE); Epithelial Cells FEW /HPF (FEW); Mucus SLIGHT /HPF (NEGATIVE); WBC 26-50 /HPF (0-5)
[2022-10-10 01:12] LABS: Appearance SLIGHTLY CLOUDY (CLEAR); Bilirubin SMALL (NEGATIVE); Glucose NEGATIVE (NEGATIVE); Ketones SMALL-15 (NEGATIVE); Nitrite NEGATIVE (NEGATIVE); Ph 5.5 (5-6); Protein,Urine Dip TRACE (Negative); RBC SMALL Ery/ul (0-5); Specific Gravity 1.025 (1.005-1.025); Urobilinogen 0.2 mg/dL (0-1)
[2022-10-10 01:13] LABS: Dipstick done @ ? MAIN LAB; Urine Cultured Indicated? YES
[2022-10-10] MEDS ORDERED: HYDROCODONE-ACETAMIN 2.5-108/5 ML SOLUTION PO STA (01:23)
[2022-10-10 01:36] VITALS: BP 119/80; PULSE 104; O2SAT 97
[2022-10-10] MEDS ORDERED: HYDROCODONE-ACETAMIN 2.5-108/5 ML SOLUTION ONE (01:37)
== END 2022-10-10 01:53 | disposition home or self-care (01) ==
LOC: ED 00:31
DX: U07.1 COVID-19 (principal); J20.8 Acute bronchitis due to other specified organisms; B37.49 Other urogenital candidiasis; R05.9 Cough, unspecified; M54.9 Dorsalgia, unspecified; R10.9 Unspecified abdominal pain; R10.2 Pelvic and perineal pain; R51.9 Headache, unspecified; Z72.0 Tobacco use; Z79.85 Long-term (current) use of injectable non-insulin antidiabetic drugs; Z79.899 Other long term (current) drug therapy; Z28.310 Unvaccinated for COVID-19; Z79.891 Long term (current) use of opiate analgesic
CPT/HCPCS: 81015; 87086; 99281; A9270-GY

== ENCOUNTER 2022-10-14 03:54 | Emergency (ER) | payer OTHER ==
[2022-10-14 04:17] VITALS: O2SAT 93
[2022-10-14] MEDS ORDERED: DUONEB 0.5-3 MG/3 ml Neb IH ONE ×2 (04:44→04:47)
--- NOTE | 2022-10-14 04:59 | ERPHSYRPT ---
- History of Present Illness Time Seen by Provider: 10/14/22 04:39 Source: patient Exam Limitations: no limitations Patient Subjective Stated Complaint: pt states she has had a cough for the last 3 weeks, tested pos for covid 10 days ago. states her son has strep throat and is concerned she may have that now as well. Triage Nursing Assessment: pt alert and oriented, answers questions approp. pt ambulatory with steady gait noted. pt able to speak in complete sentences without difficulty. frequent hacking cough noted. not productive at this time. skin clammy. Physician History: 51 years old female with history of tobacco abuse, and diabetes mellitus, recently diagnosed positive with COVID-19 almost 10 days ago presented in the ER with 2 weeks history of cough productive of clear to yellow sputum and lately getting worse. Patient also reports soreness in the throat and has positive exposure to strep pharyngitis. Because of repeated coughing having generalized chest soreness, getting short of breath with activities. Does have albuterol nebs at home but has not used today because of soreness in the tongue. No fever or chills reported. Timing/Duration: week(s) (2), gradual onset, worse Cough Quality/Degree: moderate, productive cough Possible Cause: illness exposure Modifying Factors: Improves With: albuterol nebulizer. Worsens With: coughing, exertion Associated Symptoms: chest pain/soreness, cough, muscle aches, shortness of breath, sore throat, No fever Allergies/Adverse Reactions: bee venom protein (honey bee) Allergy (Severe, Verified 10/14/22 04:16) Swelling Penicillins Allergy (Verified 10/14/22 04:16) adhesive tape Adverse Reaction (Intermediate, Verified 10/14/22 04:16) Skin Irritation latex Adverse Reaction (Intermediate, Verified 10/14/22 04:16) Skin Irritation morphine Adverse Reaction (Verified 10/14/22 04:16) pt becomes agitated when on this a prolonged period of time Home Medications: Albuterol 2.5 mg/3 ml Neb [Proventil 2.5 mg/3 ml Neb] 2.5 ml NEB DAILY 06/06/21 [History] Albuterol Sulfate [Ventolin Hfa] 18 gm NEB DAILY 06/06/21 [History] Cyclobenzaprine HCl 10 mg [Cyclobenzaprine 10 MG] 10 mg PO TID 06/19/21 [History] Dextroamphetamine/Amphetamine [Adderall 10 mg Tablet] 10 mg PO DAILY PRN 05/31/22 [History] Semaglutide [Ozempic] 1 mg IM WEEKLY 05/31/22 [History] Estrogen,Con/M-Progest Acet [Prempro 0.45-1.5 mg Tablet] 1 tablet PO DAILY 08/14/22 [History] Multivitamin 1 each PO DAILY 08/14/22 [History] Non-Formulary Drug [Non-Formulary Item] 5 mg PO DAILY 08/14/22 [History] Hx Tetanus, Diphtheria Vaccination/Date Given: Yes Hx Influenza Vaccination/Date Given: No Hx Pneumococcal Vaccination/Date Given: No Immunizations Up to Date: Yes Travel Risk - International Travel Have you traveled outside of the country in past 3 weeks: No - Coronavirus Screening Are you exhibiting any of the following symptoms?: No Close contact with a COVID-19 positive Pt in past 14-21 Days: Yes - Vaccine Status Have you recieved a Covid-19 vaccination: No - Review of Systems Constitutional: Fatigue, Weakness Eyes: No Symptoms Ears, Nose, & Throat: Nose Congestion, Throat Pain, Throat Swelling Respiratory: Cough, Dyspnea, Wheezing Cardiac: Chest Pain Abdominal/Gastrointestinal: No Symptoms Genitourinary Symptoms: No Symptoms Musculoskeletal: No Symptoms Skin: No Symptoms Neurological: No Symptoms Psychological: No Symptoms Endocrine: No Symptoms Hematologic/Lymphatic: No Symptoms Immunological/Allergic: No Symptoms - Past Medical History Pertinent Past Medical History: Yes Neurological History: No Pertinent History ENT History: No Pertinent History Cardiac History: No Pertinent History Respiratory History: Asthma Endocrine Medical History: Hypothyroidism Musculoskeletal History: No Pertinent History, Rheumatoid Arthritis GI Medical History: No Pertinent History History: No Pertinent History Psycho-Social History: Anxiety, Depression, Panic Disorder Other Medical History: graves - Past Surgical History Past Surgical History: Yes Gastrointestinal: Appendectomy, Cholecystectomy Female Surgical History: Section Other Surgical History: EAR SURGERY - Social History Smoking Status: Current every day smoker How long have you smoked: 30 years Exposure to second hand smoke: No Drug Use: marijuana Patient Lives Alone: No Significant Family History: ASTHMA-DAD - Nursing Vital Signs Nursing Vital Signs: Initial Vital Signs Temperature 96.8 F 10/14/22 04:02 Pulse Rate 112 H 10/14/22 04:02 Respiratory Rate 26 H 10/14/22 04:02 Blood Pressure 164/93 10/14/22 04:02 O2 Sat by Pulse Oximetry 93 L 10/14/22 04:02 Pain Scale Pain Intensity 8 - Physical Exam General Appearance: no apparent distress, alert Eye Exam: PERRL/EOMI Ears, Nose, Throat Exam: moist mucous membranes, pharyngeal erythema Neck Exam: normal inspection, non-tender, supple, carotid bruit Respiratory Exam: airway intact, wheezing, No crackles/rales Cardiovascular Exam: regular rate/rhythm, normal heart sounds Gastrointestinal/Abdomen Exam: soft, normal bowel sounds Back Exam: normal inspection, normal range of motion Extremity Exam: normal inspection, normal range of motion Neurologic Exam: alert, oriented x 3, cooperative Skin Exam: normal color SpO2 Interpretation: normal SpO2: 93 O2 Delivery: Room Air Ordered Tests: Active Orders 24 hr Category Date Time Status CHEST 1 VIEW (PORTABLE) Stat Exams 10/14/22 04:07 Taken Respiratory Therapy Assessment DAILY RT 10/14/22 04:54 Active Medication Summary Discontinued Medications Generic Name Dose Route Start Last Admin Trade Name Christopherq PRN Reason Stop Dose Admin Albuterol/Ipratropium 3 ml 10/14/22 04:44 10/14/22 04:54 Ipratropium/Albuterol Sulfate 3 Ml Ampul.Neb IH 10/14/22 04:45 3 ml STAT ONE Administration Albuterol/Ipratropium Confirm 10/14/22 04:47 Ipratropium/Albuterol Sulfate 3 Ml Ampul.Neb Administered 10/14/22 04:48 Dose 3 ml IH .STK-MED ONE Lab/Rad Data: Laboratory Results 10/14/22 Range/Units 04:14 Group A Strep Antibody NOT DETECTED (NEGATIVE) - Progress Progress: improved Air Movement: good Progress Note: 10/14/22 05:17 She is given DuoNeb, feeling much better on reevaluation. Chest x-ray negative for infiltrative process reviewed by me, official report is pending. Symptoms been going on for 2 weeks and I believe patient has some element of superimposed bacterial infection. I would treat her with Doxy and also give her prednisone and recommended continue with an neb treatments. Discussed signs symptoms of worsening needing return to ER which she seems understanding. Blood Culture(s) Obtained: No Antibiotics given: Yes Counseled pt/family regarding: lab results, diagnosis, need for follow-up, rad results, smoking cessation - Departure Departure Disposition: Home Clinical Impression: Bronchitis Condition: Stable Critical Care Time: No Referrals: RIVAS ROUSE MD [Primary Care Provider] - Follow up/PCP as directed (In 2 days for reevaluation) Instructions: Cough, Adult (DC) Additional Instructions: Do not smoke. Use neb treatments which you have at home every 6 hour. Follow- up with primary care for reevaluation. Return to ER if having difficulty breathing/worsening cough/fever chills/chest pain etc. Prescriptions: Prednisone 20 mg [Deltasone 20 mg] 40 mg PO DAILY 5 Days #10 tablet Doxycycline Hyclate 100 mg [Vibramycin 100 MG] 100 mg PO BID #14 tab
[2022-10-14] MEDS ORDERED: DELTASONE 20 MG PO ONE (05:16)
[2022-10-14] MEDS ORDERED: Vibramycin 100 MG PO ONE (05:16)
[2022-10-14] MEDS ORDERED: DELTASONE 20 MG ONE (05:34)
[2022-10-14] MEDS ORDERED: Vibramycin 100 MG ONE (05:34)
[2022-10-14 05:50] VITALS: BP 123/78; PULSE 94
--- NOTE | 2022-10-14 07:19 | XRAY ---
Indication: Cough and sore throat. Comparison: October 04, 2022 Portable chest inflated and clear. Heart and mediastinal structures within normal limits. Bony thorax intact. Impression: Nonacute chest.
== END 2022-10-14 05:55 | disposition home or self-care (01) ==
LOC: ED 03:54
DX: J40 Bronchitis, not specified as acute or chronic (principal); J02.9 Acute pharyngitis, unspecified; R05.3 Chronic cough; R06.02 Shortness of breath; Z72.0 Tobacco use; Z79.52 Long term (current) use of systemic steroids; Z79.899 Other long term (current) drug therapy; Z28.310 Unvaccinated for COVID-19
CPT/HCPCS: 71045; 87651; 94640; 99283; A9270-GY

== ENCOUNTER 2022-11-01 07:52 | Day surgery (SDC) | payer OTHER ==
[2022-11-01] MEDS ORDERED: Sodium Chloride 0.9(Preservative Free) 10 ML IJ ONE (07:53)
[2022-11-01] MEDS ORDERED: Depo-Medrol 40 MG/ML IM ONE (07:53)
[2022-11-01] MEDS ORDERED: DIPRIVAN 200 MG/20 ML IV ONE (09:32)
[2022-11-01] MEDS ORDERED: MORPHINE SULFATE 2 MG INJ ONE (09:53)
[2022-11-01] MEDS ORDERED: Lactated Ringers 1,000 ML IV ONE (10:29)
--- NOTE | 2022-11-01 12:00 | XRAY ---
Indication: Right L4-S1 transforaminal SALLY. Intraoperative fluoroscopy provided for 39 seconds. 6 digital spot image submitted for interpretation demonstrates posterior needle tips projecting over the expected right L4 and L5 nerve roots. Small amount of contrast injected for needle tip placement. Correlate with intraoperative findings/report.
--- NOTE | 2022-11-01 12:40 | XRAY ---
39 seconds fluoroscopy time in surgery for right L4-S1 transforaminal SALLY.
== END 2022-11-01 09:58 | disposition home or self-care (01) ==
LOC: SDC-PAIN 07:52
PROVIDERS: ATTEND Psychiatry & Neurology Pain Medicine
DX: M54.16 Radiculopathy, lumbar region (principal); E11.9 Type 2 diabetes mellitus without complications; Z79.899 Other long term (current) drug therapy
CPT/HCPCS: 64483; 64484; 72100; 77003; 81025; 82947; J1030; J2270; J2704; Q9966

== ENCOUNTER 2023-02-06 08:57 | Day surgery (SDC) | payer OTHER ==
[2023-02-06] MEDS ORDERED: Sodium Chloride 0.9(Preservative Free) 10 ML IJ ONE (08:58)
[2023-02-06] MEDS ORDERED: LIDOCAINE HCL 1% 50 MG/5 ML VL PF IJ ONE (08:58)
[2023-02-06] MEDS ORDERED: Depo-Medrol 40 MG/ML IM ONE (08:58)
[2023-02-06] MEDS ORDERED: DIPRIVAN 200 MG/20 ML IV ONE ×2 (10:45→11:22)
--- NOTE | 2023-02-06 13:45 | XRAY ---
Indication: Lumbar SALLY. Intraoperative fluoroscopy provided for 26 seconds. 3 digital spot image submitted for interpretation demonstrates single posterior needle tip projecting just posterior to lumbosacral interspace. Small amount of contrast injected for needle tip placement. Correlate with intraoperative findings/report.
[2023-02-06] MEDS ORDERED: Lactated Ringers 1,000 ML IV ONE (14:23)
--- NOTE | 2023-02-06 14:45 | XRAY ---
26 seconds of fluoroscopy was used in surgery for a lumbar SALLY.
== END 2023-02-06 11:55 | disposition home or self-care (01) ==
LOC: SDC-PAIN 08:57
PROVIDERS: ATTEND Psychiatry & Neurology Pain Medicine
DX: M54.16 Radiculopathy, lumbar region (principal); E11.9 Type 2 diabetes mellitus without complications; Z79.899 Other long term (current) drug therapy
CPT/HCPCS: 36415; 62321; 72100; 77002; 82947; 84703; J1030; J2001; J2704; Q9966

== ENCOUNTER 2023-03-13 08:01 | Day surgery (SDC) | payer OTHER ==
[2023-03-13] MEDS ORDERED: LIDOCAINE HCL 1% 50 MG/5 ML VL PF IJ ONE (08:02)
[2023-03-13] MEDS ORDERED: Decadron 4 MG INJ IV ONE (08:02)
[2023-03-13 08:24] LABS: HCG URINE TEST NEGATIVE (NEGATIVE)
[2023-03-13] MEDS ORDERED: DIPRIVAN 200 MG/20 ML IV ONE (09:22)
--- NOTE | 2023-03-13 12:30 | XRAY ---
Indication: Right piriformis injection. Intraoperative fluoroscopy provided for 16 seconds. Single digital spot images submitted for interpretation demonstrates posterior needle tip projecting over the right piriformis muscle. Small amount of contrast injected for needle tip placement. Correlate with intraoperative findings/report.
--- NOTE | 2023-03-13 12:40 | XRAY ---
17 seconds of fluoroscopy was used in surgery for a right piriformis injection.
[2023-03-13] MEDS ORDERED: Lactated Ringers 1,000 ML IV ONE (13:50)
== END 2023-03-13 09:55 | disposition home or self-care (01) ==
LOC: SDC-PAIN 08:01
PROVIDERS: ATTEND Psychiatry & Neurology Pain Medicine
DX: M79.18 Myalgia, other site (principal); E11.9 Type 2 diabetes mellitus without complications; Z79.899 Other long term (current) drug therapy
CPT/HCPCS: 20552; 36415; 72170; 77002; 81025; 82947; J1100; J2001; J2704; Q9966

== ENCOUNTER 2024-04-01 06:44 | Day surgery (SDC) | payer OTHER ==
[2024-04-01] MEDS ORDERED: Depo-Medrol 40 MG/ML IM ONE (06:45)
[2024-04-01] MEDS ORDERED: Xylocaine-Mpf 2% 5 Ml Vial IJ ONE (06:45)
[2024-04-01] MEDS ORDERED: XYLOCAINE-MPF 1% 5ML SDV IJ ONE (06:45)
[2024-04-01 07:06] LABS: HCG URINE TEST NEGATIVE (NEGATIVE)
[2024-04-01] MEDS ORDERED: DIPRIVAN 200 MG/20 ML IV ONE ×2 (08:36→08:49)
[2024-04-01] MEDS ORDERED: Lactated Ringers 1,000 ML IV ONE (09:49)
--- NOTE | 2024-04-01 12:29 | XRAY ---
Indication: Bilateral L4-S1 MBB. Intraoperative fluoroscopy provided for 11 seconds. Single digital spot image submitted for interpretation demonstrates posterior needle tips projecting over the expected left and right L4-S1 nerve roots. Correlate with interoperative findings/report.
--- NOTE | 2024-04-01 12:35 | XRAY ---
11 seconds of fluoroscopy was used in surgery for a bilateralL4-S1 MBB.
== END 2024-04-01 09:15 | disposition home or self-care (01) ==
LOC: SDC-PAIN 06:44
PROVIDERS: ATTEND Psychiatry & Neurology Pain Medicine
DX: M47.816 Spondylosis without myelopathy or radiculopathy, lumbar region (principal); E11.9 Type 2 diabetes mellitus without complications
CPT/HCPCS: 20526; 64493; 64494; 72020; 76942; 77002; 81025; 82947; J1010; J2704

== ENCOUNTER 2024-04-27 22:43 | Emergency (ER) | payer OTHER ==
[2024-04-27 22:54] VITALS: TEMP 97.1
--- NOTE | 2024-04-27 23:15 | ERPHSYRPT ---
- History of Present Illness Time Seen by Provider: 04/27/24 23:05 Historian: patient Exam Limitations: no limitations Patient Subjective Stated Complaint: vomiting since last Saturday, vertigo, recently increased dose of Ozempic Triage Nursing Assessment: Pt brought back to room by wheelchair by Ousmane Warren EMT-P, significant other at bedside. Pt c/o vomiting off and on x1 week, dizziness, diarrhea, back pain which is chronic and recently her dose of Ozempic was increased to 2mg 2 months ago. Abd soft with active bs x4 quad, nontender on palpation. Pt is very anxious and has a hx of anxiety. Physician History: This is a 53-year-old diabetic white female patient of Dr. Rouse who presents by private vehicle because of vomiting and dizziness episodes. Patient does see pain specialist Dr. Adam. Patient has a history of rheumatoid arthritis, anxiety, panic disorder and chronic low back pain. Patient states that she has been vomiting for approximately 6 days. Today, she had associated dizziness. There was an increase in her Ozempic dosing 2 months ago. Patient denies abdominal pain. She is also had a few episodes of diarrhea. She has a history of chronic back pain but her back pain was worse today because of the vomiting episodes. Patient stated that she took Tylenol 500 mg orally at 8 PM prior to arrival Timing/Duration: day(s) (6) Activities at Onset: none Pain Radiation: no radiation Severity of Pain-Max: none Severity of Pain-Current: none Modifying Factors: Improves With: vomiting Associated Symptoms: loss of appetite, nausea, vomiting, weakness Previous symptoms: no prior history, no recent treatment Allergies/Adverse Reactions: bee venom protein (honey bee) Allergy (Severe, Verified 04/27/24 23:09) Swelling Penicillins Allergy (Verified 04/27/24 23:09) adhesive tape Adverse Reaction (Intermediate, Verified 04/27/24 23:09) Skin Irritation latex Adverse Reaction (Intermediate, Verified 04/27/24 23:09) Skin Irritation morphine Adverse Reaction (Verified 04/27/24 23:09) pt becomes agitated when on this a prolonged period of time Home Medications: Albuterol 2.5 mg/3 ml Neb [Proventil 2.5 mg/3 ml Neb] 2.5 ml NEB DAILY 06/06/21 [History] Albuterol Sulfate [Ventolin Hfa] 18 gm NEB DAILY 06/06/21 [History] Cyclobenzaprine HCl 10 mg [Cyclobenzaprine 10 MG] 10 mg PO TID 06/19/21 [History] Semaglutide [Ozempic] 2 mg IM WEEKLY 05/31/22 [History] Multivitamin 1 each PO DAILY 08/14/22 [History] Gabapentin 600 mg PO QID 04/27/24 [History] Meloxicam 15 mg [Meloxicam 15 MG] 1 tab PO DAILY 04/27/24 [History] Hx Tetanus, Diphtheria Vaccination/Date Given: No Hx Influenza Vaccination/Date Given: No Hx Pneumococcal Vaccination/Date Given: No Travel Risk - International Travel Have you traveled outside of the country in past 3 weeks: No - Emerging Infectious Disease Are you exhibiting symptoms associated with any current EIDs: Yes Symptoms: Abdominal Pain, Vomitting - Review of Systems Constitutional: Weakness Eyes: No Symptoms Ears, Nose, & Throat: No Symptoms, Throat Swelling Cardiac: No Symptoms Abdominal/Gastrointestinal: Nausea, Vomiting, Diarrhea, Appetite Changes, No Abdominal Pain Genitourinary Symptoms: No Symptoms Musculoskeletal: No Symptoms Skin: No Symptoms Neurological: Dizziness Psychological: No Symptoms Endocrine: No Symptoms Hematologic/Lymphatic: No Symptoms Immunological/Allergic: No Symptoms All Other Systems: Reviewed and Negative - Past Medical History Pertinent Past Medical History: Yes Neurological History: Other ENT History: No Pertinent History Cardiac History: High Cholesterol, Hypertension Respiratory History: Asthma, COPD, Pneumonia, Other Endocrine Medical History: Diabetes Type II, Hyperthyroidism Musculoskeletal History: Other GI Medical History: Gallbladder Disease, Hernia History: No Pertinent History Psycho-Social History: Anxiety, Depression, Panic Disorder Other Medical History: self-reports hx of undiagnosed migraines, insomnia, COVID-19, tubes in ears x2, x3, appendectomy, cholecystectomy, hernia repair, multiple Bartholin's cysts, multiple injections with pain management, cyst removal at L chin x2, melanoma to back - Past Surgical History Past Surgical History: Yes Neuro Surgical History: No Pertinent History Cardiac: No Pertinent History Respiratory: No Pertinent History Gastrointestinal: Appendectomy, Cholecystectomy, Hernia Repair Musculoskeletal: No Pertinent History Female Surgical History: Section Other Surgical History: EAR SURGERY Significant Family History: ASTHMA-DAD - Female History Hx Now: No - Social History Smoking Status: Current every day smoker How long have you smoked: 25 yrs Exposure to second hand smoke: No Drug Use: marijuana Patient Lives Alone: No - Social Determinants of Health Will the patient participate in the screening: Yes Do you worry about a steady place to live?: No Do you have any problems with any of the following?: No known problems In the past 12 months,have you had to go without utilities?: No Transportation Issues: No Has anyone in your support network made you feel unsafe?: No Have you or anyone in your house had to go without enough: No - Nursing Vital Signs Nursing Vital Signs: Initial Vital Signs Temperature 97.1 F 04/27/24 22:52 Pulse Rate 78 04/27/24 22:52 Respiratory Rate 18 04/27/24 22:52 Blood Pressure 169/103 04/27/24 22:52 O2 Sat by Pulse Oximetry 99 04/27/24 22:52 Pain Scale Pain Intensity 2 - Physical Exam General Appearance: mild distress, alert, anxiety Eye Exam: PERRL/EOMI, eyes nml inspection Ears, Nose, Throat Exam: normal ENT inspection, moist mucous membranes Neck Exam: normal inspection, non-tender, supple, full range of motion Respiratory Exam: normal breath sounds, lungs clear, airway intact, No chest tenderness, No respiratory distress Cardiovascular Exam: regular rate/rhythm, normal heart sounds, normal peripheral pulses Gastrointestinal/Abdomen Exam: soft, normal bowel sounds, No tenderness Pelvic Exam: not done Rectal Exam: not done Back Exam: normal inspection, normal range of motion, No CVA tenderness, No vertebral tenderness Extremity Exam: normal inspection, normal range of motion, pelvis stable Neurologic Exam: alert, oriented x 3, cooperative, social welfare administrator II-XII nml as tested, nml cerebellar function, nml station & gait, sensation nml Skin Exam: normal color, warm, dry Lymphatic Exam: No adenopathy SpO2 Interpretation: normal SpO2: 99 O2 Delivery: Room Air - Course Nursing assessment & vital signs reviewed: Yes Ordered Tests: Active Orders 24 hr Category Date Time Status IV Insertion STAT Care 04/27/24 23:15 Active Telemetry q4h Care 04/28/24 00:21 Active AMYLASE Stat Lab 04/27/24 23:30 Completed CBC W DIFF Stat Lab 04/27/24 23:30 Completed CMP Stat Lab 04/27/24 23:30 Completed CULTURE,URINE Stat Lab 04/27/24 22:55 Received LIPASE Stat Lab 04/27/24 23:30 Completed MAG [MAGNESIUM] Stat Lab 04/27/24 23:30 Completed MONO SCREEN Stat Lab 04/27/24 23:30 Completed UA W/RFX UR CULTURE Stat Lab 04/27/24 22:55 Completed Medication Summary Discontinued Medications Generic Name Dose Route Start Last Admin Trade Name Bella PRN Reason Stop Dose Admin Sodium Chloride 1,000 mls @ 999 mls/hr 04/27/24 23:15 04/27/24 23:39 Sodium Chloride 0.9% 1000 Ml IV 04/28/24 00:15 999 mls/hr .Q1H1M STA Administration Sodium Chloride Confirm 04/27/24 23:33 Sodium Chloride 0.9% 1000 Ml Administered 04/27/24 23:34 Dose 1,000 mls @ ud .ROUTE .STK-MED ONE Lactated Ringer's 1,000 mls @ 999 mls/hr 04/28/24 00:20 04/28/24 00:45 Lactated Ringers IV 04/28/24 01:20 999 mls/hr .Q1H1M ONE Administration Potassium Chloride 20 meq in 100 mls @ 50 mls/hr 04/28/24 00:21 04/28/24 00:31 Potassium Chloride 20 Meq In Water 100ml IV 04/28/24 02:20 50 mls/hr STAT ONE Administration Potassium Chloride Confirm 04/28/24 00:29 Potassium Chloride 20 Meq In Water 100ml Administered 04/28/24 00:30 Dose 100 mls @ ud IV .STK-MED ONE Lactated Ringer's Confirm 04/28/24 00:37 Lactated Ringers Administered 04/28/24 00:38 Dose 1,000 mls @ ud IV .STK-MED ONE Prochlorperazine Edisylate 5 mg 04/27/24 23:15 04/27/24 23:39 Prochlorperazine Edisylate 10 Mg/2 Ml Vial IV 04/27/24 23:16 5 mg STAT ONE Administration Prochlorperazine Edisylate Confirm 04/27/24 23:33 Prochlorperazine Edisylate 10 Mg/2 Ml Vial Administered 04/27/24 23:34 Dose 10 mg .ROUTE .STK-MED ONE Lab/Rad Data: Laboratory Result Diagrams 04/27/24 23:30 06/10/24 23:30 Laboratory Results 04/27/24 04/27/24 04/27/24 Range/Units 23:33 23:30 23:30 WBC (3.98-10.04) x10^3/uL RBC (3.93-5.22) x10^6/uL Hgb (11.2-15.7) g/dL Hct (34.1-44.9) % MCV (79.4-94.8) fL MCH (25.6-32.2) pg MCHC (32.2-35.5) g/dL RDW (11.7-14.4) % Plt Count (182-369) x10^3/uL MPV (9.4-12.3) fL Gran % (34.0-71.1) % Immature Gran % (Auto) (0.001-0.429) % Nucleat RBC Rel Count (0.00-0.2) % Eos # (Auto) (0.04-0.36) x10^3/uL Immature Gran # (Auto) (0.001-0.031) x10^3u/L Absolute Lymphs (auto) (1.18-3.74) x10^3/uL Absolute Monos (auto) (0.24-0.86) x10^3/uL Absolute Nucleated RBC (0.00-0.012) x10^3u/L Lymphocytes % (19.3-51.7) % Monocytes % (4.7-12.5) % Eosinophils % (0.7-5.8) % Basophils % (0.1-1.2) % Absolute Granulocytes (1.56-6.13) x10^3/uL Basophils # (0.01-0.08) x10^3/uL Sodium (135-145) mmol/L Potassium (3.5-5.1) mmol/L Chloride (98-107) mmol/L Carbon Dioxide (22-30) mmol/L Anion Gap (5-15) MEQ/L BUN (7-17) mg/dL Creatinine (0.52-1.04) mg/dL Estimated GFR ML/MIN Glucose (74-106) mg/dL Calcium (8.4-10.2) mg/dL Magnesium 1.8 (1.6-2.3) mg/dL Total Bilirubin (0.2-1.3) mg/dL AST (14-36) U/L ALT (0-35) U/L Alkaline Phosphatase (38-126) U/L Serum Total Protein (6.3-8.2) g/dL Albumin (3.5-5.0) g/dL Amylase (30-110) U/L Lipase (23-300) U/L Urine Color (Yellow) Urine Appearance (Clear) Urine pH (4.6-8.0) Ur Specific Mcfarland (1.005-1.030) Urine Protein (Negative) Urine Glucose (UA) (Negative) mg/dL Urine Ketones (Negative) Urine Blood (Negative) Urine Nitrite (Negative) Urine Bilirubin (Negative) Urine Urobilinogen (0.2) mg/dL Ur Leukocyte Esterase (Negative) U Hyaline Cast (Auto) (0-2) /LPF Urine Microscopic RBC (0-5) /HPF Urine Microscopic WBC (0-5) /HPF Ur Epithelial Cells (None Seen) /HPF Urine Bacteria (None Seen) /HPF Urine Culture Reflexed (NO) Monoscreen NEGATIVE (NEGATIVE) Influenza Type A Ag NEGATIVE (NEGATIVE) Influenza Type B Ag NEGATIVE (NEGATIVE) RSV (PCR) NEGATIVE (NEGATIVE) SARS-CoV-2 (PCR) NEGATIVE (NEGATIVE) 04/27/24 04/27/24 04/27/24 Range/Units 23:30 23:30 22:55 WBC 7.9 (3.98-10.04) x10^3/uL RBC 5.19 (3.93-5.22) x10^6/uL Hgb 15.7 (11.2-15.7) g/dL Hct 45.1 H (34.1-44.9) % MCV 86.9 (79.4-94.8) fL MCH 30.3 (25.6-32.2) pg MCHC 34.8 (32.2-35.5) g/dL RDW 12.4 (11.7-14.4) % Plt Count 204 (182-369) x10^3/uL MPV 11.7 (9.4-12.3) fL Gran % 43.8 (34.0-71.1) % Immature Gran % (Auto) 0.3 (0.001-0.429) % Nucleat RBC Rel Count 0.0 (0.00-0.2) % Eos # (Auto) 0.12 (0.04-0.36) x10^3/uL Immature Gran # (Auto) 0.02 (0.001-0.031) x10^3u/L Absolute Lymphs (auto) 3.55 (1.18-3.74) x10^3/uL Absolute Monos (auto) 0.70 (0.24-0.86) x10^3/uL Absolute Nucleated RBC 0.00 (0.00-0.012) x10^3u/L Lymphocytes % 44.7 (19.3-51.7) % Monocytes % 8.8 (4.7-12.5) % Eosinophils % 1.5 (0.7-5.8) % Basophils % 0.9 (0.1-1.2) % Absolute Granulocytes 3.48 (1.56-6.13) x10^3/uL Basophils # 0.07 (0.01-0.08) x10^3/uL Sodium 137 (135-145) mmol/L Potassium 3.0 L* (3.5-5.1) mmol/L Chloride 99 (98-107) mmol/L Carbon Dioxide 26 (22-30) mmol/L Anion Gap 14.8 (5-15) MEQ/L BUN 15 (7-17) mg/dL Creatinine 0.62 (0.52-1.04) mg/dL Estimated GFR 107.1 ML/MIN Glucose 107 H (74-106) mg/dL Calcium 10.8 H (8.4-10.2) mg/dL Magnesium (1.6-2.3) mg/dL Total Bilirubin 0.90 (0.2-1.3) mg/dL AST 32 (14-36) U/L ALT 23 (0-35) U/L Alkaline Phosphatase 104 (38-126) U/L Serum Total Protein 8.8 H (6.3-8.2) g/dL Albumin 5.1 H (3.5-5.0) g/dL Amylase 64 (30-110) U/L Lipase 119 (23-300) U/L Urine Color Dark Yellow A (Yellow) Urine Appearance Clear (Clear) Urine pH 5.5 (4.6-8.0) Ur Specific [place]far[place] 1.020 (1.005-1.030) Urine Protein Trace A (Negative) Urine Glucose (UA) Negative (Negative) mg/dL Urine Ketones 15 A (Negative) Urine Blood Negative (Negative) Urine Nitrite Negative (Negative) Urine Bilirubin Negative (Negative) Urine Urobilinogen 1.0 A (0.2) mg/dL Ur Leukocyte Esterase Trace A (Negative) U Hyaline Cast (Auto) 3-5 A (0-2) /LPF Urine Microscopic RBC 0-2 (0-5) /HPF Urine Microscopic WBC 3-5 (0-5) /HPF Ur Epithelial Cells Few (None Seen) /HPF Urine Bacteria Rare A (None Seen) /HPF Urine Culture Reflexed YES (NO) Monoscreen (NEGATIVE) Influenza Type A Ag (NEGATIVE) Influenza Type B Ag (NEGATIVE) RSV (PCR) (NEGATIVE) SARS-CoV-2 (PCR) (NEGATIVE) - Progress Progress: improved, re-examined Progress Note: 04/27/24 23:50 My medical decision making and the assignment of moderate complexity to this p atient's medical issue today is based on review the patient's past medical history, review of the patient's medication list, review of patient drug allergy list, history present illness and physical findings on examination. The workup in this patient includes placement of intravenous line, infusion normal saline solution, infusion of antiemetics, infusion of pain medicine, infusion of Protonix, CBC, CMP, amylase, lipase, lactic acid level, urinalysis, viral swabs and monotest. 04/27/24 23:51 The differential diagnosis includes but is not limited to pancreatitis, urinalysis, medication side effect, dehydration, electrolyte abnormalities 04/28/24 00:23 I interpreted the patient's laboratory data results. Patient does have hypokalemia with a level of 3.0. The patient will receive a second liter crystalloid. The second liter will be a liter of lactated Ringer's. Will also provide the patient with a single K rider of 20 mill equivalents of potassium. 04/28/24 03:03 Patient tolerated clears patient was up and walking to the restroom. She is feeling much better. Counseled pt/family regarding: lab results, diagnosis, need for follow-up Medical Desision Making - Independent Historian Additional History obtained from: Spouse - Diagnostic Testing Diagnostic test were ordered, analyzed, and reviewed by me: Yes - Risk of complications The pt has a mod risk of morbidity or mortality based on: Need for prescription drug management - Departure Departure Disposition: Home Clinical Impression: Vomiting, Mild dehydration, Hypokalemia Condition: Stable Critical Care Time: No Referrals: RIVAS ROUSE MD [Primary Care Provider] - Follow up/PCP as directed Additional Instructions: Drink plenty of clear liquids before advancing your diet. Take your medications as prescribed. Call your primary care provider later today to make arranges for follow-up appointment to be evaluated in the next 3 to 5 days Prescriptions: Ondansetron ODT 4 MG [Zofran Odt 4 mg] 4 mg PO Q6H PRN PRN #10 tablet PRN Reason: Vomiting
[2024-04-27 23:28] LABS: Appearance Clear (Clear); Bacteria Rare /HPF (None Seen); Bilirubin Negative (Negative); Blood Negative (Negative); Epithelial Cells Few /HPF (None Seen); Glucose, Urine Negative (Negative); Ketones 15 (Negative); Leukocyte Esterase Trace (Negative); Nitrite Negative (Negative); Ph 5.5 (4.6-8.0); Protein,Urine Dip Trace (Negative); RBC 0-2 /HPF (0-5)
[2024-04-27] MEDS ORDERED: Compazine 10 MG/2 ML ONE (23:33)
[2024-04-27] MEDS ORDERED: Sodium Chloride 0.9% 1000 ML 1,000 ML ONE (23:33)
[2024-04-27 23:38] LABS: Absolute Neutrophil Ct (ANC) 3.48 x10^3/uL (1.56-6.13); BASOPHIL % 0.9 % (0.1-1.2); Basophil (Absolute #) 0.07 x10^3/uL (0.01-0.08); Eosinophil % 1.5 % (0.7-5.8); Eosinophil (Absolute #) 0.12 x10^3/uL (0.04-0.36); Hematocrit 45.1 % (34.1-44.9); Hemoglobin 15.7 g/dL (11.2-15.7); IMMATURE GRAN # 0.02 x10^3u/L (0.001-0.031); IMMATURE GRAN % 0.3 % (0.001-0.429); Lymphocyte (Absolute #) 3.55 x10^3/uL (1.18-3.74); Lymphocytes % 44.7 % (19.3-51.7); Mean Cell Volume 86.9 fL (79.4-94.8); Mean Corpuscular Hemoglobin 30.3 pg (25.6-32.2); Mean Corpuscular Hgb Concent. 34.8 g/dL (32.2-35.5); Mean Platelet Volume 11.7 fL (9.4-12.3); Monocytes % 8.8 % (4.7-12.5); Neutrophil % 43.8 % (34.0-71.1); Platelet Count 204 x10^3/uL (182-369); Red Blood Count 5.19 x10^6/uL (3.93-5.22); Red Cell Distribution Width 12.4 % (11.7-14.4); White Blood Count 7.9 x10^3/uL (3.98-10.04)
[2024-04-27 23:38] LABS: ADD URINE CULTURE? YES (NO)
[2024-04-27] MEDS: Sodium Chloride 0.9% 1000 ML 1,000 ML IV STA (23:39)
[2024-04-27] MEDS: Compazine 10 MG/2 ML IV ONE (23:39)
[2024-04-27 23:52] LABS: ALBUMIN 5.1 g/dL (3.5-5.0); ANION GAP 14.8 MEQ/L (5-15); BILIRUBIN,TOTAL 0.9 mg/dL (0.2-1.3); Calcium 10.8 mg/dL (8.4-10.2); Creatinine 1 0.62 mg/dL (0.52-1.04); EST GLOMERULAR FILTRATION RATE 107.1 ML/MIN; Total Protein 8.8 g/dL (6.3-8.2)
[2024-04-28 00:13] LABS: INFLUENZA A NEGATIVE (NEGATIVE); INFLUENZA B NEGATIVE (NEGATIVE); RESPIRATORY SYNCTIAL VIRUS NEGATIVE (NEGATIVE); SARS-CoV-2 Xpert Express NEGATIVE (NEGATIVE)
[2024-04-28] MEDS ORDERED: POTASSIUM CHLORIDE 20 mEq IN WATER 100ML 100 ML IV ONE (00:29)
[2024-04-28] MEDS: POTASSIUM CHLORIDE 20 mEq IN WATER 100ML 20 MEQ/100 ML BAG IV ONE (00:31)
[2024-04-28] MEDS ORDERED: Lactated Ringers 1,000 ML IV ONE (00:37)
[2024-04-28] MEDS: Lactated Ringers 1,000 ML IV ONE (00:45)
[2024-04-28 03:05] VITALS: O2SAT 99
[2024-04-28 03:21] VITALS: BP 135/95; PULSE 76; RESP 18
== END 2024-04-28 03:19 | disposition home or self-care (01) ==
LOC: ED 22:43
DX: R11.2 Nausea with vomiting, unspecified (principal); E86.0 Dehydration; E87.6 Hypokalemia; R42 Dizziness and giddiness; E78.5 Hyperlipidemia, unspecified; I10 Essential (primary) hypertension; E11.9 Type 2 diabetes mellitus without complications; Z79.85 Long-term (current) use of injectable non-insulin antidiabetic drugs; Z79.899 Other long term (current) drug therapy; Z72.0 Tobacco use
CPT/HCPCS: 0241U; 36000; 36415; 80053; 81001; 82150; 83690; 83735; 85025; 86308; 87086; 96374; 99284; J3480

== ENCOUNTER 2024-05-13 07:51 | Day surgery (SDC) | payer OTHER ==
[2024-05-13] MEDS ORDERED: BUPIVACAINE 0.5% VIAL IJ ONE (07:52)
[2024-05-13] MEDS ORDERED: Depo-Medrol 40 MG/ML IM ONE (07:52)
[2024-05-13 08:17] LABS: HCG URINE TEST NEGATIVE (NEGATIVE)
[2024-05-13] MEDS ORDERED: DIPRIVAN 200 MG/20 ML IV ONE (09:40)
[2024-05-13] MEDS ORDERED: Lactated Ringers 1,000 ML IV ONE (10:04)
--- NOTE | 2024-05-13 10:39 | XRAY ---
Indication: Bilateral L4-S1 MBB. Intraoperative fluoroscopy provided for 10 seconds. Single digital spot image submitted for interpretation demonstrates posterior needle tips projecting over the expected left and right L4-S1 nerve roots. Correlate with intraoperative findings/report.
--- NOTE | 2024-05-13 13:24 | XRAY ---
10 seconds of fluoroscopy was used in surgery for a bilateral L4-S1 MBB.
== END 2024-05-13 10:10 | disposition home or self-care (01) ==
LOC: SDC-PAIN 07:51
PROVIDERS: ATTEND Psychiatry & Neurology Pain Medicine
DX: M47.816 Spondylosis without myelopathy or radiculopathy, lumbar region (principal); E11.9 Type 2 diabetes mellitus without complications
CPT/HCPCS: 64493; 64494; 72020; 77002; 81025; 82947; J1010; J2704

== ENCOUNTER 2024-06-22 08:57 | Day surgery (SDC) | payer OTHER ==
--- NOTE | 2024-06-22 08:32 | HP ---
HISTORY AND PHYSICAL HISTORY OF PRESENT ILLNESS: The patient has history of some nausea and vomiting, started with some vertigo when she was high up at a concert venue. PAST MEDICAL HISTORY: History of some vertigo since April 2024, has had nausea and vomiting. Hypothyroidism, COPD, asthma, prediabetes, hypertension. HOME MEDICATIONS: Meloxicam, gabapentin, ondansetron, multivitamin, albuterol sulfate. ALLERGIES: Bee pollen and penicillin. PAST SURGICAL HISTORY: Cholecystectomy in the past, and tubal in the past, had ear tubes in the past, had Bartholin cyst in the past. SOCIAL HISTORY: History of smoker. Denies alcohol abuse. FAMILY HISTORY: Father had some ulcers. Negative for gastric cancer. Negative for esophageal cancer. REVIEW OF SYSTEMS: Twelve systems reviewed. No chest pain or palpitations. Other systems negative or noncontributory as above and per preadmission questionnaire. PHYSICAL EXAMINATION: GENERAL: Height 4 feet 10 inches. BMI 31. GENERAL: No acute distress. HEENT: Sclerae nonicteric. Extraocular movements intact. NECK: No JVD. CHEST: Equal excursion, nonlabored breathing. CARDIOVASCULAR: Regular rate and rhythm. ABDOMEN: Soft. SKIN: Dry. EXTREMITIES: No cyanosis or edema. NEUROLOGIC: Alert and oriented, moving all extremities symmetrically. PSYCHIATRIC: Appropriate mood and affect. IMPRESSION: History of nausea and vomiting, history of vertigo. Needs upper endoscopy to evaluate for gastritis, peptic ulcer disease, or other etiology. Shown the risk sheet and explained procedure in detail including but not limited to bleeding or infection, risk of bowel injury or perforation, risk of missed or nondiagnosis, risk of incomplete exam possibly requiring barium swallow or other such procedures, risk of anesthesia or sedation but not limited to. She understands. We will proceed with EGD and possible biopsy under MAC anesthesia as outpatient. Otherwise, continue medication for hypertension, COPD, prediabetes, hypothyroidism.
[2024-06-22] MEDS ORDERED: Lactated Ringers 1,000 ML IV ONE (09:29)
[2024-06-22] MEDS: Lactated Ringers 1,000 ML IV SCH (09:32)
[2024-06-22 09:42] VITALS: O2SAT 97
[2024-06-22] MEDS ORDERED: Versed 2 MG/2 ML Injection ONE (11:22)
[2024-06-22] MEDS ORDERED: Xylocaine-Mpf 2% 5 Ml Vial ONE (11:22)
[2024-06-22] MEDS ORDERED: DIPRIVAN 200 MG/20 ML IV ONE (11:22)
[2024-06-22 12:08] VITALS: RESP 16
[2024-06-22 12:16] VITALS: BP 134/81; PULSE 51; TEMP 97
--- NOTE | 2024-06-23 13:29 | OP ---
SURGERY DATE/TIME: 06/22/2024 [id number] PREOPERATIVE DIAGNOSIS: History of nausea and vomiting, need for upper endoscopy. POSTOPERATIVE DIAGNOSES: 1) Mild gastritis with some petechial hemorrhages without any gross evidence of ulceration. 2) Mild erythema, distal esophagus, pathology pending. 3) Small question hyperplastic lesion mid esophagus about 30 cm. 4) ASA class 2. PROCEDURES: 1) Esophagogastroduodenoscopy with cold biopsy of the small bowel for celiac sprue. 2) Cold biopsy of the antrum to evaluate for Helicobacter pylori. 3) Cold biopsy of distal esophagus to evaluate for early inflammation versus normal variation distal esophagus. 4) Cold biopsy removal of small raised lesion in the esophagus about 30 cm from incisors, question hyperplastic lesion, pathology pending. SURGEON: Vidal Ray MD ANESTHESIA: MAC. ESTIMATED BLOOD LOSS: Minimal. INDICATIONS: Consent was obtained. DESCRIPTION OF PROCEDURE AND FINDINGS: Patient was taken to the endoscopy room. MAC anesthesia induced after official time-out for planned procedure. Bite block positioned. Videogastroscope easily passed down the esophagus through the patent pylorus to the junction of the third and fourth portion of duodenum. The duodenum was grossly unremarkable. Given her nausea and vomiting, cold biopsy was taken of small bowel to evaluate for celiac sprue. Good hemostasis noted. Scope pulled back into the stomach. Cold biopsy was taken to evaluate for some for H pylori. There was some mild gastritis with some petechial hemorrhages. No gross evidence of ulcerations or masses. On retroflexion, the GE junction was snug against the scope. Scope was straightened. GE junction was about 39 cm. There was just some mild erythema in distal esophagus. No erosions. No gross Rg's. Cold biopsy was taken to evaluate for histology. Good hemostasis noted. Scope pulled back. There were no signs of any obvious obstructing lesions or masses in the esophagus. There was 1 small raised lesion versus early hyperplastic lesion removed with cold biopsy forceps, mid esophagus about 30 cm from incisors. The remainder of esophagus looked unremarkable. Scope withdrawn. Patient tolerated the procedure well. There were no immediate complications. I will see her back in the office and to see if she had any family to discuss any findings.
== END 2024-06-22 12:28 | disposition home or self-care (01) ==
LOC: SDC 08:57 → EDSTATUS 10:04 → SDC 12:28
PROVIDERS: ATTEND Surgery
DX: K29.71 Gastritis, unspecified, with bleeding (principal); R11.2 Nausea with vomiting, unspecified; R73.03 Prediabetes; K22.89 Other specified disease of esophagus
CPT/HCPCS: 82947; J2250; J2704

== ENCOUNTER 2024-09-30 07:03 | Day surgery (SDC) | payer OTHER ==
[2024-09-30] MEDS ORDERED: Depo-Medrol 40 MG/ML IM ONE (07:04)
[2024-09-30] MEDS ORDERED: LIDOCAINE HCL 1% AMPUL 5 ML IJ ONE (07:04)
[2024-09-30] MEDS ORDERED: BUPIVACAINE 0.5% VIAL IJ ONE (07:04)
[2024-09-30 07:15] LABS: HCG URINE TEST NEGATIVE (NEGATIVE)
[2024-09-30] MEDS ORDERED: DIPRIVAN 200 MG/20 ML IV ONE ×2 (08:03→08:14)
--- NOTE | 2024-09-30 10:25 | XRAY ---
Indication: Right L4-S1 RFA. Intraoperative fluoroscopy provided for 12 seconds. 3 digital spot image submitted for interpretation demonstrates posterior needle tips projecting over the expected right L4-S1 nerve roots. Correlate with intraoperative findings/report.
--- NOTE | 2024-09-30 11:31 | XRAY ---
12 seconds of fluoroscopy was used in surgery for a right L4-S1 RFA.
== END 2024-09-30 08:45 | disposition home or self-care (01) ==
LOC: SDC-PAIN 07:03
PROVIDERS: ATTEND Psychiatry & Neurology Pain Medicine
DX: M47.817 Spondylosis without myelopathy or radiculopathy, lumbosacral region (principal); E11.9 Type 2 diabetes mellitus without complications
CPT/HCPCS: 64635; 64636; 72100; 77002; 81025; 82947; J2704

== ENCOUNTER 2024-10-01 06:53 | Day surgery (SDC) | payer OTHER ==
[2024-10-01] MEDS ORDERED: Depo-Medrol 40 MG/ML IM ONE (06:54)
[2024-10-01] MEDS ORDERED: BUPIVACAINE 0.5% VIAL IJ ONE (06:54)
[2024-10-01] MEDS ORDERED: LIDOCAINE HCL 1% AMPUL 5 ML IJ ONE (06:54)
[2024-10-01 07:15] LABS: HCG URINE TEST NEGATIVE (NEGATIVE)
[2024-10-01] MEDS ORDERED: DIPRIVAN 200 MG/20 ML IV ONE ×2 (07:56→08:25)
[2024-10-01] MEDS ORDERED: Xylocaine-Mpf 2% 5 Ml Vial ONE (08:19)
--- NOTE | 2024-10-01 11:12 | XRAY ---
Indication: Left L4-S1 RFA. Intraoperative fluoroscopy provided for 17 seconds. 3 digital spot image submitted for interpretation demonstrates posterior needle tips projecting over expected left L4-S1 nerve roots. Correlate with intraoperative findings/report.
--- NOTE | 2024-10-01 11:33 | XRAY ---
17 seconds of fluoroscopy was used in surgery for a left L4-S1 RFA.
== END 2024-10-01 09:06 | disposition home or self-care (01) ==
LOC: SDC-PAIN 06:53
PROVIDERS: ATTEND Psychiatry & Neurology Pain Medicine
DX: M47.816 Spondylosis without myelopathy or radiculopathy, lumbar region (principal); E11.9 Type 2 diabetes mellitus without complications
CPT/HCPCS: 64635; 64636; 72100; 77002; 81025; 82947; J2704